=== PATIENT | male | born 1980 | race Asian ===

== ENCOUNTER 2023-03-19 07:17 | Inpatient (IN) | payer BC ==
[~2023-03-19] VITALS: Ht 170.2 cm; Wt 46.3 kg
[2023-03-19] MEDS: methylPREDNISolone SOD SUCC 125 MG/2ML VIAL IV ONE ×2 (07:30→07:46)
[2023-03-19] MEDS ORDERED: ALBUTEROL FS 2.5 MG/3 ML VIAL.NEB CONTNEB ONE (07:30)
[2023-03-19] MEDS ORDERED: CEFEPIME 1 GM in IV D5W 50 ML IV ONE (07:30)
[2023-03-19] MEDS ORDERED: VANCOMYCIN 1 GM in IV D5W 250 ML IV ONE ×2 (07:30→08:30)
[2023-03-19] MEDS ORDERED: IPRATROPIUM NEB FS 0.5 MG/2.5 ML AMPUL.NEB NEB ONE (07:30)
[2023-03-19] MEDS ORDERED: IV NS 0.9% 1,000 ML BAG IV ONE (07:30)
[2023-03-19] MEDS ORDERED: methylPREDNISolone SOD SUCC 125 MG/2ML VIAL ONE ×2 (07:32→08:20)
[2023-03-19] MEDS ORDERED: IPRATROPIUM NEB FS 0.5 MG/2.5 ML AMPUL.NEB ONE (07:56)
[2023-03-19] MEDS ORDERED: ALBUTEROL FS 2.5 MG/3 ML VIAL.NEB ONE (07:56)
[2023-03-19] MEDS ORDERED: ACETAMINOPHEN 650 MG/SUPP.RECT RC ONE ×2 (07:58→08:00)
[2023-03-19 08:01] LABS: BASOPHILS % (AUTO) 0.1 % (0.0-2.0); HEMATOCRIT 31 % (39-51); LYMPHOCYTES # (AUTO) 1.4 K/uL (0.8-4.8); MEAN CORPUSCULAR HEMOGLOBIN 30 PG (26.0-33.0); MEAN CORPUSCULAR HGB CONC 33 g/dl (31.0-36.0); MEAN CORPUSCULAR VOLUME 92 fL (80-96); MONOCYTES # (AUTO) 1.2 K/uL (0.1-1.30); MONOCYTES % (AUTO) 6.7 % (2.0-12.0); NEUTROPHILS # (AUTO) 15.3 K/uL (1.8-8.9); NEUTROPHILS % (AUTO) 85.2 % (43.0-81.0); PLATELET COUNT (AUTO) 208 K/uL (150-450); RED BLOOD CELL COUNT(AUTO) 3.35 MIL/uL (4.5-6.0); RED CELL DISTRIBUTION WIDTH 16.3 % (11.5-15.0); WHITE BLOOD COUNT (AUTO) 17.9 K/uL (4.3-11.0)
[2023-03-19 08:15] LABS: CALCIUM, SERUM 8.8 mg/dL (8.5-10.1); CARBON DIOXIDE 33 mmol/L (21-32); CHLORIDE 98 mmol/L (98-107); CREATININE 0.6 mg/dL (0.6-1.3); GLUCOSE 148 mg/dL (74-106); POTASSIUM 4.6 mmol/L (3.5-5.1); SODIUM SERUM 135 mmol/L (136-145); UREA NITROGEN, BLOOD 43 mg/dL (7-18)
[2023-03-19 08:19] LABS: APPEARANCE,URINE TURBID (CLEAR); BILIRUBIN,URINE NEGATIVE (NEGATIVE); BLOOD, URINE 3+ Ery/uL (NEGATIVE); COLOR,URINE DARK YELLOW (YELLOW); KETONES,URINE NEGATIVE (NEGATIVE); LEUKOCYTE ESTERASE ,URINE 3+ (NEGATIVE); NITRITE, URINE NEGATIVE (NEGATIVE); PROTEIN,URINE TRACE mg/dl (NEGATIVE); UGLUCOSE NEGATIVE (NEGATIVE); UROBILINOGEN,URINE 0.2 EU/dL (0.2)
[2023-03-19 08:20] LABS: ADD URINE CULTURE YES; BACTERIA,URINE Moderate /HPF (None Seen); SQUAMOUS EPITHELIAL CELL,UR Rare /HPF (None Seen); WBC,URINE 21-50 /HPF (0-3)
[2023-03-19 08:21] LABS: ALANINE AMINOTRANSFERASE 57 U/L (12-78); ALBUMIN 2.1 g/dL (3.4-5.0); ALKALINE PHOSPHATASE 98 U/L (46-116); ASPARTATE AMINOTRANSFERASE 45 U/L (15-37); BILIRUBIN,DIRECT 0.1 mg/dL (0.0-0.2); BILIRUBIN,TOTAL 0.2 mg/dL (0.2-1.0); TOTAL PROTEIN, SERUM 6.7 g/dL (6.4-8.2)
[2023-03-19 08:23] LABS: LACTIC ACID 1.1 mmol/L (0.4-2.0)
[2023-03-19 08:24] LABS: ABG BASE EXCESS 8.2 mmol/L; ABG OXYGEN SATURATION 96.3 % (92.0-98.5); ABG PCO2 44.6 mmHg (35.0-45.0); ABG PH 7.481 (7.350-7.450); ABG TOTAL HEMOGLOBIN 10.1 G/dL (13.5-18.0); COHb 0.3 % (0.5-1.5); MetHb 0.4 % (0.0-1.5); O2Hb 95.6 % (94.0-97.0); PEEP,BG 5 cm H2O; SITE, ABG Right Radial; VT, ABG 400 mL
[2023-03-19 08:26] LABS: INR 1.19 (0.91-1.10); PARTIAL THROMBOPLASTIN TIME 31.3 SEC (24.3-34.3); PROTHROMBIN TIME 12.5 SECS (9.2-11.1)
[2023-03-19] MEDS ORDERED: NOREPINEPHRINE 8 MG in IV NS 0.9% 250 ML IV PRN (08:30)
[2023-03-19] MEDS ORDERED: DANT25CA GT (08:33)
[2023-03-19] MEDS ORDERED: CLON0.1T GT (08:33)
[2023-03-19] MEDS ORDERED: LEVE1000 GT (08:33)
[2023-03-19] MEDS ORDERED: LEVO50TA8 GT (08:33)
[2023-03-19] MEDS ORDERED: ACET-868 GT (08:33)
[2023-03-19] MEDS ORDERED: CHOL100043 GT (08:33)
[2023-03-19] MEDS ORDERED: MODAFINIL GT (08:33)
[2023-03-19] MEDS ORDERED: LORA2VIA11 IM (08:33)
[2023-03-19] MEDS ORDERED: METO-295 GT (08:33)
[2023-03-19] MEDS ORDERED: HONE44PA TP (08:33)
[2023-03-19] MEDS ORDERED: VALP250S4 GT (08:33)
[2023-03-19] MEDS ORDERED: IPRA3AMP23 IH (08:33)
[2023-03-19] MEDS ORDERED: [UNRECOGNIZED DRUG - CODE] IH (08:33)
[2023-03-19] MEDS ORDERED: FERR300L GT (08:33)
[2023-03-19] MEDS ORDERED: LACT1CAP80 GT (08:33)
[2023-03-19] MEDS ORDERED: DOXY100C2 GT (08:33)
[2023-03-19] MEDS ORDERED: POLY17PO4 GT (08:33)
[2023-03-19] MEDS ORDERED: AMAN100T GT (08:33)
[2023-03-19] MEDS ORDERED: PANT40SU2 GT (08:33)
[2023-03-19] MEDS ORDERED: DOCU250C14 GT (08:33)
[2023-03-19] MEDS ORDERED: LACT-209 GT (08:33)
[2023-03-19 08:44] LABS: THYROID STIMULATING HORMONE 0.965 uIU/mL (0.358-3.74)
[2023-03-19 09:17] LABS: ALBUMIN 1.8 g/dL (3.4-5.0); BILIRUBIN,DIRECT 0.1 mg/dL (0.0-0.2); BILIRUBIN,TOTAL 0.3 mg/dL (0.2-1.0); CALCIUM, SERUM 7.9 mg/dL (8.5-10.1); CREATININE 0.6 mg/dL (0.6-1.3); POTASSIUM 4.1 mmol/L (3.5-5.1); TOTAL PROTEIN, SERUM 5.8 g/dL (6.4-8.2)
[2023-03-19] MEDS ORDERED: NOREPINEPHRINE 8 MG in IV NS 0.9% 242 ML IV PRN (10:30)
[2023-03-19] MEDS ORDERED: PIPERACILLIN /TAZOBACTAM 3.375 G in IV D5W 100 ML IV SCH (11:00)
[2023-03-19] MEDS ORDERED: PIPERACILLIN /TAZOBACTAM 4.5 G in IV D5W 100 ML IV SCH (12:00)
[2023-03-19] MEDS ORDERED: PANTOPRAZOLE 40 MG VIAL ONE (12:51)
[2023-03-19] MEDS: PANTOPRAZOLE 40 MG VIAL IV SCH (12:54)
[2023-03-19] MEDS ORDERED: ENOXAPARIN SODIUM 40 MG/0.4 ML DISP.SYRIN SQ SCH (13:00)
[2023-03-19] MEDS ORDERED: ENOXAPARIN SODIUM 40 MG/0.4 ML DISP.SYRIN SQ ONE (13:47)
[2023-03-19] MEDS: VANCOMYCIN 1 GM in IV D5W 250ml IV SCH (17:45)
[2023-03-19] MEDS ORDERED: VANCOMYCIN 1 GM /D5W 250 ML PB IV ONE (17:48)
[2023-03-19 22:30] VITALS: BP 137/87; O2SAT 100
[2023-03-19 22:45] VITALS: BP 144/92; O2SAT 90
[2023-03-19 23:00] VITALS: BP 128/86; O2SAT 94
[2023-03-19 23:15] VITALS: BP 134/89; O2SAT 92
[2023-03-19 23:30] VITALS: BP 135/84; O2SAT 91
[2023-03-19] MEDS ORDERED: PIPERACI/TAZO 3.375GM/D5W 50ML PB IV ONE (23:36)
[2023-03-19] MEDS: PIPERACILLIN /TAZOBACTAM 3.375 G in IV D5W 100 ML IV SCH (23:38)
[2023-03-19] MEDS: ENOXAPARIN SODIUM 40 MG/0.4 ML DISP.SYRIN SQ SCH (23:39)
[2023-03-19] MEDS: IV NS 0.9% 1,000 ML IV PRN (23:39)
[2023-03-19 23:45] VITALS: BP 138/92; O2SAT 93
[2023-03-20] VITALS (43 sets, daily range): BP systolic 81–147; BP diastolic 53–135; TEMP 97.9–99; O2SAT 89–100
[2023-03-20] MEDS ORDERED: VANCOMYCIN 1 GM /D5W 250 ML PB IV ONE (00:09)
[2023-03-20] MEDS: VANCOMYCIN 1 GM in IV D5W 250ml IV SCH (00:17)
[2023-03-20 04:09] LABS: HEMATOCRIT 25 % (39-51); HEMOGLOBIN 8.1 g/dL (13.5-17.5); LYMPHOCYTES % (AUTO) 5.5 % (20.0-44.0); MEAN CORPUSCULAR HEMOGLOBIN 29 PG (26.0-33.0); MEAN CORPUSCULAR HGB CONC 32 g/dl (31.0-36.0); MEAN CORPUSCULAR VOLUME 90 fL (80-96); MONOCYTES % (AUTO) 4.5 % (2.0-12.0); PLATELET COUNT (AUTO) 154 K/uL (150-450); RED BLOOD CELL COUNT(AUTO) 2.79 MIL/uL (4.5-6.0); WHITE BLOOD COUNT (AUTO) 14.5 K/uL (4.3-11.0)
[2023-03-20 04:10] LABS: LYMPHOCYTES # (AUTO) 0.8 K/uL (0.8-4.8); MONOCYTES # (AUTO) 0.7 K/uL (0.1-1.30)
[2023-03-20 04:36] LABS: ALBUMIN 1.8 g/dL (3.4-5.0); BILIRUBIN,TOTAL 0.3 mg/dL (0.2-1.0); CALCIUM, SERUM 8.1 mg/dL (8.5-10.1); CREATININE 0.5 mg/dL (0.6-1.3); POTASSIUM 3.7 mmol/L (3.5-5.1); TOTAL PROTEIN, SERUM 5.7 g/dL (6.4-8.2)
[2023-03-20] MEDS: PIPERACILLIN /TAZOBACTAM 3.375 G in IV D5W 100 ML IV SCH ×3 (08:09→23:48)
[2023-03-20] MEDS: PANTOPRAZOLE 40 MG VIAL IV SCH (09:57)
[2023-03-20] MEDS: DAKINS QUARTER STRENGTH (0.125%) 480 ML BOTTLE TOP SCH (09:57)
[2023-03-20] MEDS: THERAHONEY GEL 1.5 OZ TUBE TP SCH (09:58)
[2023-03-20] MEDS: IV NS 0.9% 1,000 ML IV PRN (12:06)
[2023-03-20] MEDS ORDERED: LIDOCAINE 1%-EPI 1:100,000 20 ML VIAL TP ONE (16:30)
[2023-03-20] MEDS: VANCOMYCIN 0.75 GM in IV D5W 250 ML IV SCH (20:31)
[2023-03-20] MEDS: ENOXAPARIN SODIUM 40 MG/0.4 ML DISP.SYRIN SQ SCH (20:32)
[2023-03-21] VITALS (80 sets, daily range): BP systolic 62–158; BP diastolic 48–106; TEMP 97.6–99.5; O2SAT 90–100
[2023-03-21] MEDS: IV NS 0.9% 1,000 ML IV PRN ×2 (00:49→19:16)
[2023-03-21] MEDS: VANCOMYCIN 0.75 GM in IV D5W 250 ML IV SCH ×3 (04:21→20:00)
[2023-03-21 05:36] LABS: CALCIUM, SERUM 8.1 mg/dL (8.5-10.1); CREATININE 0.3 mg/dL (0.6-1.3); POTASSIUM 3.3 mmol/L (3.5-5.1)
[2023-03-21] MEDS: PIPERACILLIN /TAZOBACTAM 3.375 G in IV D5W 100 ML IV SCH ×3 (08:42→23:41)
[2023-03-21] MEDS ORDERED: POTASSIUM CHLORIDE 10 MEQ/50 ML PREMIXED IVPB FOR PERIPHERAL LINE IV ONE (09:00)
[2023-03-21] MEDS: DAKINS QUARTER STRENGTH (0.125%) 480 ML BOTTLE TOP SCH (09:47)
[2023-03-21] MEDS: THERAHONEY GEL 1.5 OZ TUBE TP SCH (09:47)
[2023-03-21] MEDS: PANTOPRAZOLE 40 MG VIAL IV SCH (09:53)
[2023-03-21] MEDS: POTASSIUM CL. PREMIX PERIPHER. 50 ML IV SCH ×4 (09:54→13:15)
[2023-03-21 10:29] LABS: HEMOGLOBIN 7.3 g/dL (13.5-17.5)
[2023-03-21 10:53] LABS: BASOPHILS % (AUTO) 0.1 % (0.0-2.0); EOSINOPHILS % (AUTO) 0.1 % (0.0-6.0); LYMPHOCYTES # (AUTO) 0.7 K/uL (0.8-4.8); MONOCYTES # (AUTO) 0.3 K/uL (0.1-1.30)
[2023-03-21 10:56] LABS: HEMATOCRIT 22 % (39-51); LYMPHOCYTES % (AUTO) 9.6 % (20.0-44.0); MEAN CORPUSCULAR HEMOGLOBIN 29 PG (26.0-33.0); MEAN CORPUSCULAR HGB CONC 33 g/dl (31.0-36.0); MEAN CORPUSCULAR VOLUME 90 fL (80-96); MONOCYTES % (AUTO) 4.1 % (2.0-12.0); NEUTROPHILS % (AUTO) 86.1 % (43.0-81.0); PLATELET COUNT (AUTO) 119 K/uL (150-450); RED BLOOD CELL COUNT(AUTO) 2.49 MIL/uL (4.5-6.0); RED CELL DISTRIBUTION WIDTH 16.1 % (11.5-15.0)
[2023-03-21] MEDS: JEVITY 1.2 CAL 1,000 ML BOTTLE GT PRN (13:40)
[2023-03-21] MEDS: ENOXAPARIN SODIUM 40 MG/0.4 ML DISP.SYRIN SQ SCH (21:00)
[2023-03-21 22:42] LABS: HIV-1 p24 ANTIGEN NON REACTIVE (NONREACTIVE); HIV-1/2 ANTIBODY NON REACTIVE (NONREACTIVE)
[2023-03-21] MEDS: ACETAMINOPHEN 650 MG/20.3 ML UDC NG PRN (22:56)
[2023-03-22] VITALS (98 sets, daily range): BP systolic 50–186; BP diastolic 32–162; TEMP 97–100.2; O2SAT 93–100
[2023-03-22] MEDS: VANCOMYCIN 0.75 GM in IV D5W 250 ML IV SCH ×3 (04:09→21:16)
[2023-03-22 05:11] LABS: CALCIUM, SERUM 7.7 mg/dL (8.5-10.1); CREATININE 0.3 mg/dL (0.6-1.3); POTASSIUM 3.6 mmol/L (3.5-5.1)
[2023-03-22] MEDS: IV NS 0.9% 1,000 ML IV PRN ×3 (05:18→23:49)
[2023-03-22] MEDS: DAKINS QUARTER STRENGTH (0.125%) 480 ML BOTTLE TOP SCH (08:14)
[2023-03-22] MEDS: PANTOPRAZOLE 40 MG VIAL IV SCH (08:14)
[2023-03-22] MEDS: PIPERACILLIN /TAZOBACTAM 3.375 G in IV D5W 100 ML IV SCH ×4 (08:14→23:50)
[2023-03-22] MEDS: THERAHONEY GEL 1.5 OZ TUBE TP SCH (08:15)
[2023-03-22] MEDS: JEVITY 1.2 CAL 1,000 ML BOTTLE GT PRN (12:41)
[2023-03-22] MEDS: ACETAMINOPHEN 650 MG/20.3 ML UDC NG PRN (15:22)
[2023-03-22] MEDS: ARGININE/GLUTAMINE/CALCIUM BMB 1 EACH POWD.PACK GT SCH (17:50)
[2023-03-22] MEDS: ENOXAPARIN SODIUM 40 MG/0.4 ML DISP.SYRIN SQ SCH (21:00)
[2023-03-23] VITALS (24 sets, daily range): BP systolic 96–163; BP diastolic 59–79; TEMP 98.3–101; O2SAT 95–100
[2023-03-23 05:17] LABS: ABG OXYGEN SATURATION 98.3 % (92.0-98.5); ABG PCO2 37.3 mmHg (35.0-45.0); ABG PH 7.459 (7.350-7.450); ABG TOTAL HEMOGLOBIN 8.9 G/dL (13.5-18.0); AaDO2 102.3 mmHg; COHb 0.2 % (0.5-1.5); MetHb 0.1 % (0.0-1.5); PEEP,BG 0 cm H2O; SITE, ABG Right Radial; VENT MODE, BG AC18 400 40% +0; VT, ABG 400 mL
[2023-03-23 05:38] LABS: BASOPHILS % (AUTO) 0.2 % (0.0-2.0); EOSINOPHILS # (AUTO) 0.2 K/uL (0.0-0.7); EOSINOPHILS % (AUTO) 2.2 % (0.0-6.0); HEMATOCRIT 23 % (39-51); HEMOGLOBIN 7.5 g/dL (13.5-17.5); LYMPHOCYTES # (AUTO) 0.6 K/uL (0.8-4.8); LYMPHOCYTES % (AUTO) 8.6 % (20.0-44.0); MEAN CORPUSCULAR HEMOGLOBIN 30 PG (26.0-33.0); MEAN CORPUSCULAR HGB CONC 32 g/dl (31.0-36.0); MEAN CORPUSCULAR VOLUME 92 fL (80-96); MONOCYTES # (AUTO) 0.3 K/uL (0.1-1.30); MONOCYTES % (AUTO) 4.1 % (2.0-12.0); NEUTROPHILS # (AUTO) 6.1 K/uL (1.8-8.9); NEUTROPHILS % (AUTO) 84.9 % (43.0-81.0); PLATELET COUNT (AUTO) 131 K/uL (150-450); RED BLOOD CELL COUNT(AUTO) 2.54 MIL/uL (4.5-6.0); RED CELL DISTRIBUTION WIDTH 16.1 % (11.5-15.0); WHITE BLOOD COUNT (AUTO) 7.2 K/uL (4.3-11.0)
[2023-03-23 06:08] LABS: CALCIUM, SERUM 7.9 mg/dL (8.5-10.1); CREATININE 0.2 mg/dL (0.6-1.3); POTASSIUM 3.9 mmol/L (3.5-5.1)
[2023-03-23 06:14] LABS: BAND % (MANUAL) 1 % (0.0-5.0); EOSINOPHILS % (MANUAL) 1 % (0-4); LYMPHOCYTES % (MANUAL) 8 % (16-48); MONOCYTES % (MANUAL) 7 % (0-11.0); NEUTROPHILS % (MANUAL) 83 (42-76); PLATELET ESTIMATE DECREASED
[2023-03-23] MEDS: PIPERACILLIN /TAZOBACTAM 3.375 G in IV D5W 100 ML IV SCH (07:48)
[2023-03-23] MEDS: ARGININE/GLUTAMINE/CALCIUM BMB 1 EACH POWD.PACK GT SCH ×2 (08:17→16:12)
[2023-03-23] MEDS: ZINC SULFATE 220 MG CAPSULE GT SCH (08:18)
[2023-03-23] MEDS: PANTOPRAZOLE 40 MG/PACK PACK NG SCH (08:18)
[2023-03-23] MEDS: DAKINS QUARTER STRENGTH (0.125%) 480 ML BOTTLE TOP SCH (08:18)
[2023-03-23] MEDS: MULTIVIT W/MINERALS 1 TAB TABLET GT SCH (08:19)
[2023-03-23] MEDS: THERAHONEY GEL 1.5 OZ TUBE TP SCH (08:20)
[2023-03-23] MEDS: IV NS 0.9% 1,000 ML IV PRN (09:18)
[2023-03-23] MEDS: VANCOMYCIN 0.75 GM in IV D5W 250 ML IV SCH ×2 (09:23→21:17)
[2023-03-23] MEDS: MEROPENEM 1 G in IV NS 0.9% 100 ML IV SCH ×2 (13:42→21:55)
[2023-03-23] MEDS: ACETAMINOPHEN 650 MG/20.3 ML UDC NG PRN (16:12)
[2023-03-23] MEDS: ENOXAPARIN SODIUM 40 MG/0.4 ML DISP.SYRIN SQ SCH (21:00)
[2023-03-24 00:33] VITALS: BP 102/87; TEMP 99.3; O2SAT 99
[2023-03-24] MEDS: IV NS 0.9% 1,000 ML IV PRN (00:57)
[2023-03-24] MEDS: JEVITY 1.2 CAL 1,000 ML BOTTLE GT PRN (03:16)
[2023-03-24] MEDS: MEROPENEM 1 G in IV NS 0.9% 100 ML IV SCH ×3 (04:00→21:20)
[2023-03-24 04:49] VITALS: BP 107/63; TEMP 99.1; O2SAT 99
[2023-03-24 08:00] VITALS: BP 139/100; TEMP 100; O2SAT 98
[2023-03-24 08:26] LABS: CALCIUM, SERUM 8.1 mg/dL (8.5-10.1); CREATININE 0.2 mg/dL (0.6-1.3); POTASSIUM 4.4 mmol/L (3.5-5.1)
[2023-03-24] MEDS: ACETAMINOPHEN 650 MG/20.3 ML UDC NG PRN (09:24)
[2023-03-24] MEDS: ARGININE/GLUTAMINE/CALCIUM BMB 1 EACH POWD.PACK GT SCH ×2 (09:24→17:07)
[2023-03-24] MEDS: MULTIVIT W/MINERALS 1 TAB TABLET GT SCH (09:24)
[2023-03-24] MEDS: DAKINS QUARTER STRENGTH (0.125%) 480 ML BOTTLE TOP SCH (09:25)
[2023-03-24] MEDS: THERAHONEY GEL 1.5 OZ TUBE TP SCH (09:25)
[2023-03-24] MEDS: ZINC SULFATE 220 MG CAPSULE GT SCH (09:25)
[2023-03-24] MEDS: PANTOPRAZOLE 40 MG/PACK PACK NG SCH (09:25)
[2023-03-24] MEDS: VANCOMYCIN 0.75 GM in IV D5W 250 ML IV SCH ×2 (09:28→21:21)
[2023-03-24 12:00] VITALS: BP 124/99; TEMP 99.5; O2SAT 98
[2023-03-24 16:00] VITALS: BP 93/59; TEMP 98.4; O2SAT 95
[2023-03-24 20:00] VITALS: BP 97/59; TEMP 98.4; O2SAT 95
[2023-03-24] MEDS: ENOXAPARIN SODIUM 40 MG/0.4 ML DISP.SYRIN SQ SCH (21:24)
[2023-03-25 02:23] VITALS: BP 97/59; TEMP 98.4; O2SAT 95
[2023-03-25] MEDS: IV NS 0.9% 1,000 ML IV PRN (02:38)
[2023-03-25] MEDS: MEROPENEM 1 G in IV NS 0.9% 100 ML IV SCH ×3 (05:00→20:16)
[2023-03-25 06:00] VITALS: BP 123/66; TEMP 99.9; O2SAT 95
[2023-03-25 06:11] LABS: CALCIUM, SERUM 8.2 mg/dL (8.5-10.1); CREATININE 0.5 mg/dL (0.6-1.3); POTASSIUM 4.3 mmol/L (3.5-5.1)
[2023-03-25 08:00] VITALS: BP 135/100; TEMP 97.6; O2SAT 95
[2023-03-25] MEDS: PANTOPRAZOLE 40 MG/PACK PACK NG SCH (08:58)
[2023-03-25] MEDS: VANCOMYCIN 0.75 GM in IV D5W 250 ML IV SCH ×2 (08:58→20:57)
[2023-03-25] MEDS: ZINC SULFATE 220 MG CAPSULE GT SCH (08:58)
[2023-03-25] MEDS: MULTIVIT W/MINERALS 1 TAB TABLET GT SCH (08:58)
[2023-03-25] MEDS: ARGININE/GLUTAMINE/CALCIUM BMB 1 EACH POWD.PACK GT SCH ×2 (09:00→16:37)
[2023-03-25] MEDS: DAKINS QUARTER STRENGTH (0.125%) 480 ML BOTTLE TOP SCH (09:18)
[2023-03-25] MEDS: THERAHONEY GEL 1.5 OZ TUBE TP SCH (09:18)
[2023-03-25] MEDS: ACETAMINOPHEN 650 MG/20.3 ML UDC GT PRN (10:59)
[2023-03-25 12:00] VITALS: BP 97/58; TEMP 97.9; O2SAT 95
[2023-03-25 16:00] VITALS: BP 98/60; TEMP 98; O2SAT 95
[2023-03-25 20:00] VITALS: BP 109/74; TEMP 98.8; O2SAT 95
[2023-03-25] MEDS: JEVITY 1.2 CAL 1,000 ML BOTTLE GT PRN (20:56)
[2023-03-26] VITALS (11 sets, daily range): BP systolic 96–110; BP diastolic 56–67; TEMP 97.7–99.7; O2SAT 93–96
[2023-03-26] MEDS: ENOXAPARIN SODIUM 40 MG/0.4 ML DISP.SYRIN SQ SCH ×2 (00:49→21:00)
[2023-03-26] MEDS: MEROPENEM 1 G in IV NS 0.9% 100 ML IV SCH ×3 (04:59→20:21)
[2023-03-26 06:04] LABS: CALCIUM, SERUM 8.6 mg/dL (8.5-10.1); CREATININE 0.4 mg/dL (0.6-1.3); POTASSIUM 4.2 mmol/L (3.5-5.1)
[2023-03-26] MEDS: PANTOPRAZOLE 40 MG/PACK PACK GT SCH (08:10)
[2023-03-26] MEDS: ARGININE/GLUTAMINE/CALCIUM BMB 1 EACH POWD.PACK GT SCH ×2 (08:11→16:14)
[2023-03-26] MEDS: ZINC SULFATE 220 MG CAPSULE GT SCH (08:11)
[2023-03-26] MEDS: MULTIVIT W/MINERALS 1 TAB TABLET GT SCH (08:12)
[2023-03-26] MEDS: VANCOMYCIN 0.75 GM in IV D5W 250 ML IV SCH ×2 (08:12→21:06)
[2023-03-26] MEDS: THERAHONEY GEL 1.5 OZ TUBE TP SCH (08:13)
[2023-03-26 08:52] LABS: BASOPHILS % (AUTO) 0.2 % (0.0-2.0); EOSINOPHILS % (AUTO) 0.6 % (0.0-6.0); HEMATOCRIT 21 % (39-51); LYMPHOCYTES # (AUTO) 0.5 K/uL (0.8-4.8); LYMPHOCYTES % (AUTO) 20.5 % (20.0-44.0); MEAN CORPUSCULAR HEMOGLOBIN 29 PG (26.0-33.0); MEAN CORPUSCULAR HGB CONC 32 g/dl (31.0-36.0); MEAN CORPUSCULAR VOLUME 92 fL (80-96); MONOCYTES # (AUTO) 0.7 K/uL (0.1-1.30); MONOCYTES % (AUTO) 31.3 % (2.0-12.0); NEUTROPHILS # (AUTO) 1.1 K/uL (1.8-8.9); NEUTROPHILS % (AUTO) 47.4 % (43.0-81.0); PLATELET COUNT (AUTO) 194 K/uL (150-450); RED BLOOD CELL COUNT(AUTO) 2.25 MIL/uL (4.5-6.0); RED CELL DISTRIBUTION WIDTH 15.7 % (11.5-15.0); WHITE BLOOD COUNT (AUTO) 2.3 K/uL (4.3-11.0)
[2023-03-26] MEDS: DAKINS QUARTER STRENGTH (0.125%) 480 ML BOTTLE TOP SCH (09:00)
[2023-03-26 09:06] LABS: HEMOGLOBIN 6.6 g/dL (13.5-17.5)
[2023-03-26 12:51] LABS: ANISOCYTOSIS 1+; BAND % (MANUAL) 3 % (0.0-5.0); LYMPHOCYTES % (MANUAL) 19 % (16-48); MONOCYTES % (MANUAL) 18 % (0-11.0); NEUTROPHILS % (MANUAL) 60 (42-76); PLATELET ESTIMATE ADEQUATE
[2023-03-26] MEDS: JEVITY 1.2 CAL 1,000 ML BOTTLE GT PRN (14:12)
[2023-03-26] MEDS: ACETAMINOPHEN 650 MG/20.3 ML UDC GT PRN (16:04)
[2023-03-27] VITALS: BP 115/63; TEMP 98.1; O2SAT 95
[2023-03-27] MEDS ORDERED: DANTROLENE SODIUM 25 MG CAPSULE GT SCH (00:30)
[2023-03-27] MEDS ORDERED: LORAZEPAM INJ 2 MG/ML VIAL IV PRN (00:30)
[2023-03-27] MEDS ORDERED: PHARMACY TO CHANGE PO MEDS TO GT/NG XX PRN (01:00)
[2023-03-27] MEDS: LEVETIRACETAM SOL (5 ML) 100 MG/ML UDC GT SCH ×3 (01:37→21:55)
[2023-03-27] MEDS: VALPROIC ACID 250 MG/5 ML UDC GT SCH ×3 (01:38→21:54)
[2023-03-27] MEDS: LEVOTHYROXINE SODIUM 50 MCG TABLET GT SCH ×2 (01:38→21:55)
[2023-03-27] MEDS: FERROUS SULFATE UDC 300 MG/5 ML UDC GT SCH ×3 (01:38→21:55)
[2023-03-27] MEDS: AMANTADINE HCL 100 MG CAPSULE GT SCH ×3 (01:38→21:55)
[2023-03-27] MEDS ORDERED: DANTROLENE SODIUM 25 MG CAPSULE ONE (01:51)
[2023-03-27 04:00] VITALS: BP 110/60; TEMP 98; O2SAT 93
[2023-03-27] MEDS: MEROPENEM 1 G in IV NS 0.9% 100 ML IV SCH ×3 (04:55→21:06)
[2023-03-27 07:35] LABS: BASOPHILS % (AUTO) 0.1 % (0.0-2.0); EOSINOPHILS % (AUTO) 0.8 % (0.0-6.0); HEMATOCRIT 24 % (39-51); HEMOGLOBIN 7.7 g/dL (13.5-17.5); LYMPHOCYTES # (AUTO) 0.7 K/uL (0.8-4.8); LYMPHOCYTES % (AUTO) 20.3 % (20.0-44.0); MEAN CORPUSCULAR HEMOGLOBIN 30 PG (26.0-33.0); MEAN CORPUSCULAR HGB CONC 33 g/dl (31.0-36.0); MEAN CORPUSCULAR VOLUME 92 fL (80-96); MONOCYTES # (AUTO) 0.7 K/uL (0.1-1.30); MONOCYTES % (AUTO) 18.9 % (2.0-12.0); NEUTROPHILS # (AUTO) 2.2 K/uL (1.8-8.9); NEUTROPHILS % (AUTO) 59.9 % (43.0-81.0); PLATELET COUNT (AUTO) 225 K/uL (150-450); RED BLOOD CELL COUNT(AUTO) 2.58 MIL/uL (4.5-6.0); RED CELL DISTRIBUTION WIDTH 15.4 % (11.5-15.0); WHITE BLOOD COUNT (AUTO) 3.6 K/uL (4.3-11.0)
[2023-03-27 07:48] LABS: CALCIUM, SERUM 8.8 mg/dL (8.5-10.1); CREATININE 0.3 mg/dL (0.6-1.3); POTASSIUM 4.2 mmol/L (3.5-5.1)
[2023-03-27 08:00] VITALS: BP 106/55; TEMP 98.3; O2SAT 96
[2023-03-27] MEDS: ZINC SULFATE 220 MG CAPSULE GT SCH (08:22)
[2023-03-27] MEDS: PANTOPRAZOLE 40 MG/PACK PACK GT SCH (08:22)
[2023-03-27] MEDS: CHOLECALCIFEROL (VITAMIN D 3) 400 UNIT TABLET GT SCH (08:23)
[2023-03-27] MEDS: MULTIVIT W/MINERALS 1 TAB TABLET GT SCH (08:23)
[2023-03-27] MEDS: DANTROLENE SODIUM 25 MG CAPSULE GT SCH ×3 (08:25→21:54)
[2023-03-27] MEDS: ARGININE/GLUTAMINE/CALCIUM BMB 1 EACH POWD.PACK GT SCH ×2 (08:26→16:28)
[2023-03-27] MEDS: DAKINS QUARTER STRENGTH (0.125%) 480 ML BOTTLE TOP SCH (08:28)
[2023-03-27] MEDS: THERAHONEY GEL 1.5 OZ TUBE TP SCH (08:28)
[2023-03-27] MEDS: VANCOMYCIN 0.75 GM in IV D5W 250 ML IV SCH ×2 (08:28→21:54)
[2023-03-27] MEDS ORDERED: CHOLECALCIFEROL (VITAMIN D 3) 400 UNIT TABLET PO SCH (09:00)
[2023-03-27] MEDS ORDERED: PANTOPRAZOLE 40 MG/PACK PACK GT SCH (09:00)
[2023-03-27 11:05] LABS: EOSINOPHILS % (MANUAL) 2 % (0-4); LYMPHOCYTES % (MANUAL) 20 % (16-48); MONOCYTES % (MANUAL) 16 % (0-11.0); NEUTROPHILS % (MANUAL) 62 (42-76)
[2023-03-27 12:00] VITALS: BP 116/56; TEMP 98.1; O2SAT 96
[2023-03-27 13:45] LABS: PLATELET ESTIMATE ADEQUATE
[2023-03-27 16:00] VITALS: BP 119/70; TEMP 98.3; O2SAT 100
[2023-03-27] MEDS: JEVITY 1.2 CAL 1,000 ML BOTTLE GT PRN (18:23)
[2023-03-27 20:00] VITALS: BP 101/59; TEMP 97.9; O2SAT 94
[2023-03-27] MEDS: ENOXAPARIN SODIUM 40 MG/0.4 ML DISP.SYRIN SQ SCH (21:00)
[2023-03-28] VITALS: BP 95/52; TEMP 97.9; O2SAT 95
[2023-03-28 04:00] VITALS: BP 103/66; TEMP 97.5; O2SAT 98
[2023-03-28] MEDS: MEROPENEM 1 G in IV NS 0.9% 100 ML IV SCH ×3 (05:20→20:33)
[2023-03-28 07:02] LABS: BASOPHILS % (AUTO) 0.1 % (0.0-2.0); EOSINOPHILS % (AUTO) 0.2 % (0.0-6.0); HEMATOCRIT 25 % (39-51); LYMPHOCYTES # (AUTO) 0.8 K/uL (0.8-4.8); LYMPHOCYTES % (AUTO) 15.3 % (20.0-44.0); MEAN CORPUSCULAR HEMOGLOBIN 30 PG (26.0-33.0); MEAN CORPUSCULAR HGB CONC 32 g/dl (31.0-36.0); MEAN CORPUSCULAR VOLUME 94 fL (80-96); MONOCYTES # (AUTO) 0.6 K/uL (0.1-1.30); MONOCYTES % (AUTO) 11.2 % (2.0-12.0); NEUTROPHILS # (AUTO) 3.6 K/uL (1.8-8.9); NEUTROPHILS % (AUTO) 73.2 % (43.0-81.0); PLATELET COUNT (AUTO) 247 K/uL (150-450); RED BLOOD CELL COUNT(AUTO) 2.67 MIL/uL (4.5-6.0); RED CELL DISTRIBUTION WIDTH 15.6 % (11.5-15.0); WHITE BLOOD COUNT (AUTO) 4.9 K/uL (4.3-11.0)
[2023-03-28 07:24] LABS: CREATININE 0.4 mg/dL (0.6-1.3); POTASSIUM 4.6 mmol/L (3.5-5.1)
[2023-03-28 08:00] VITALS: BP 105/56; TEMP 98.6; O2SAT 94
[2023-03-28] MEDS: DANTROLENE SODIUM 25 MG CAPSULE GT SCH ×3 (08:45→20:33)
[2023-03-28] MEDS: DAKINS QUARTER STRENGTH (0.125%) 480 ML BOTTLE TOP SCH (09:00)
[2023-03-28] MEDS: THERAHONEY GEL 1.5 OZ TUBE TP SCH (09:00)
[2023-03-28] MEDS: ARGININE/GLUTAMINE/CALCIUM BMB 1 EACH POWD.PACK GT SCH ×2 (09:07→17:00)
[2023-03-28] MEDS: ZINC SULFATE 220 MG CAPSULE GT SCH (09:10)
[2023-03-28] MEDS: CHOLECALCIFEROL (VITAMIN D 3) 400 UNIT TABLET GT SCH (09:11)
[2023-03-28] MEDS: MULTIVIT W/MINERALS 1 TAB TABLET GT SCH (09:12)
[2023-03-28] MEDS: AMANTADINE HCL 100 MG CAPSULE GT SCH ×2 (09:13→20:33)
[2023-03-28] MEDS: PANTOPRAZOLE 40 MG/PACK PACK GT SCH (09:14)
[2023-03-28] MEDS: LEVETIRACETAM SOL (5 ML) 100 MG/ML UDC GT SCH ×2 (09:15→20:33)
[2023-03-28] MEDS: FERROUS SULFATE UDC 300 MG/5 ML UDC GT SCH ×2 (09:16→20:33)
[2023-03-28] MEDS: VALPROIC ACID 250 MG/5 ML UDC GT SCH ×2 (09:17→20:33)
[2023-03-28] MEDS: VANCOMYCIN 0.75 GM in IV D5W 250 ML IV SCH ×2 (09:50→20:33)
[2023-03-28 12:00] VITALS: BP 105/62; TEMP 99.2; O2SAT 97
[2023-03-28 16:00] VITALS: BP 107/69; TEMP 97.9; O2SAT 98
[2023-03-28 20:00] VITALS: BP 96/67; TEMP 97.5; O2SAT 98
[2023-03-28] MEDS: ENOXAPARIN SODIUM 40 MG/0.4 ML DISP.SYRIN SQ SCH (21:50)
[2023-03-28] MEDS: LEVOTHYROXINE SODIUM 50 MCG TABLET GT SCH (23:00)
[2023-03-29] VITALS: BP 120/71; TEMP 97.7; O2SAT 98
[2023-03-29 04:00] VITALS: BP 119/63; TEMP 97.7; O2SAT 99
[2023-03-29] MEDS: MEROPENEM 1 G in IV NS 0.9% 100 ML IV SCH ×3 (05:26→20:29)
[2023-03-29 05:47] LABS: BASOPHILS % (AUTO) 0.2 % (0.0-2.0); EOSINOPHILS % (AUTO) 0.3 % (0.0-6.0); HEMATOCRIT 26 % (39-51); HEMOGLOBIN 8.3 g/dL (13.5-17.5); LYMPHOCYTES % (AUTO) 14.2 % (20.0-44.0); MEAN CORPUSCULAR HEMOGLOBIN 30 PG (26.0-33.0); MEAN CORPUSCULAR HGB CONC 32 g/dl (31.0-36.0); MEAN CORPUSCULAR VOLUME 93 fL (80-96); MONOCYTES # (AUTO) 0.5 K/uL (0.1-1.30); MONOCYTES % (AUTO) 7.7 % (2.0-12.0); NEUTROPHILS # (AUTO) 5.4 K/uL (1.8-8.9); NEUTROPHILS % (AUTO) 77.6 % (43.0-81.0); PLATELET COUNT (AUTO) 263 K/uL (150-450); RED CELL DISTRIBUTION WIDTH 15.6 % (11.5-15.0); WHITE BLOOD COUNT (AUTO) 6.9 K/uL (4.3-11.0)
[2023-03-29 06:10] LABS: CALCIUM, SERUM 9.1 mg/dL (8.5-10.1); CREATININE 0.3 mg/dL (0.6-1.3)
[2023-03-29 08:00] VITALS: BP 109/83; TEMP 98.8; O2SAT 100
[2023-03-29] MEDS: DANTROLENE SODIUM 25 MG CAPSULE GT SCH ×3 (08:52→20:35)
[2023-03-29] MEDS: LEVETIRACETAM SOL (5 ML) 100 MG/ML UDC GT SCH ×2 (08:52→20:34)
[2023-03-29] MEDS: FERROUS SULFATE UDC 300 MG/5 ML UDC GT SCH ×2 (08:52→20:33)
[2023-03-29] MEDS: VALPROIC ACID 250 MG/5 ML UDC GT SCH ×2 (08:52→20:34)
[2023-03-29] MEDS: ZINC SULFATE 220 MG CAPSULE GT SCH (08:53)
[2023-03-29] MEDS: VANCOMYCIN 0.75 GM in IV D5W 250 ML IV SCH ×2 (08:53→20:44)
[2023-03-29] MEDS: AMANTADINE HCL 100 MG CAPSULE GT SCH ×2 (08:53→20:40)
[2023-03-29] MEDS: PANTOPRAZOLE 40 MG/PACK PACK GT SCH (08:53)
[2023-03-29] MEDS: MULTIVIT W/MINERALS 1 TAB TABLET GT SCH (08:53)
[2023-03-29] MEDS: CHOLECALCIFEROL (VITAMIN D 3) 400 UNIT TABLET GT SCH (08:53)
[2023-03-29] MEDS: THERAHONEY GEL 1.5 OZ TUBE TP SCH (08:54)
[2023-03-29] MEDS: DAKINS QUARTER STRENGTH (0.125%) 480 ML BOTTLE TOP SCH (08:54)
[2023-03-29] MEDS: ARGININE/GLUTAMINE/CALCIUM BMB 1 EACH POWD.PACK GT SCH ×2 (08:54→16:15)
[2023-03-29 12:00] VITALS: BP 113/94; TEMP 99.1; O2SAT 100
[2023-03-29] MEDS: JEVITY 1.2 CAL 1,000 ML BOTTLE GT PRN (13:10)
[2023-03-29 16:00] VITALS: BP 140/109; TEMP 99.9; O2SAT 98
[2023-03-29] MEDS: ACETAMINOPHEN 650 MG/20.3 ML UDC GT PRN (16:15)
[2023-03-29 20:00] VITALS: BP 102/62; TEMP 99.1; O2SAT 93
[2023-03-29] MEDS: ENOXAPARIN SODIUM 40 MG/0.4 ML DISP.SYRIN SQ SCH (20:27)
[2023-03-29] MEDS: LEVOTHYROXINE SODIUM 50 MCG TABLET GT SCH (23:38)
[2023-03-30] VITALS: BP 107/63; TEMP 98.5; O2SAT 97
[2023-03-30 04:00] VITALS: BP 122/70; TEMP 98.5; O2SAT 97
[2023-03-30] MEDS: MEROPENEM 1 G in IV NS 0.9% 100 ML IV SCH ×3 (05:15→22:04)
[2023-03-30 07:47] LABS: CREATININE 0.3 mg/dL (0.6-1.3)
[2023-03-30 08:00] VITALS: BP 150/109; TEMP 98.8; O2SAT 97
[2023-03-30] MEDS: VALPROIC ACID 250 MG/5 ML UDC GT SCH ×2 (08:12→22:06)
[2023-03-30] MEDS: FERROUS SULFATE UDC 300 MG/5 ML UDC GT SCH ×2 (08:13→22:04)
[2023-03-30] MEDS: ZINC SULFATE 220 MG CAPSULE GT SCH (08:13)
[2023-03-30] MEDS: CHOLECALCIFEROL (VITAMIN D 3) 400 UNIT TABLET GT SCH (08:13)
[2023-03-30] MEDS: PANTOPRAZOLE 40 MG/PACK PACK GT SCH (08:13)
[2023-03-30] MEDS: MULTIVIT W/MINERALS 1 TAB TABLET GT SCH (08:13)
[2023-03-30] MEDS: AMANTADINE HCL 100 MG CAPSULE GT SCH ×2 (08:13→22:12)
[2023-03-30] MEDS: DANTROLENE SODIUM 25 MG CAPSULE GT SCH ×3 (08:13→22:05)
[2023-03-30] MEDS: LEVETIRACETAM SOL (5 ML) 100 MG/ML UDC GT SCH ×2 (08:13→22:07)
[2023-03-30] MEDS: ARGININE/GLUTAMINE/CALCIUM BMB 1 EACH POWD.PACK GT SCH ×2 (08:19→16:03)
[2023-03-30] MEDS: DAKINS QUARTER STRENGTH (0.125%) 480 ML BOTTLE TOP SCH (08:19)
[2023-03-30] MEDS: THERAHONEY GEL 1.5 OZ TUBE TP SCH (08:20)
[2023-03-30] MEDS: VANCOMYCIN 0.75 GM in IV D5W 250 ML IV SCH ×2 (09:23→22:07)
[2023-03-30] MEDS: ACETAMINOPHEN 650 MG/20.3 ML UDC GT PRN (12:55)
[2023-03-30 13:04] VITALS: BP 124/72; TEMP 100; O2SAT 97
[2023-03-30 16:00] VITALS: BP 111/89; TEMP 98.8; O2SAT 99
[2023-03-30] MEDS: ENOXAPARIN SODIUM 40 MG/0.4 ML DISP.SYRIN SQ SCH (22:03)
[2023-03-30] MEDS: LEVOTHYROXINE SODIUM 50 MCG TABLET GT SCH (22:07)
[2023-03-31] VITALS: BP 180/89; TEMP 99.7; O2SAT 96
[2023-03-31 04:00] VITALS: BP 123/73; TEMP 98.4; O2SAT 96
[2023-03-31] MEDS: MEROPENEM 1 G in IV NS 0.9% 100 ML IV SCH (04:31)
[2023-03-31 08:00] VITALS: BP 94/65; TEMP 98.8; O2SAT 98
[2023-03-31] MEDS: VANCOMYCIN 0.75 GM in IV D5W 250 ML IV SCH (08:57)
[2023-03-31] MEDS: ARGININE/GLUTAMINE/CALCIUM BMB 1 EACH POWD.PACK GT SCH ×2 (08:57→16:14)
[2023-03-31] MEDS: FERROUS SULFATE UDC 300 MG/5 ML UDC GT SCH ×2 (08:58→21:39)
[2023-03-31] MEDS: VALPROIC ACID 250 MG/5 ML UDC GT SCH ×2 (08:58→21:39)
[2023-03-31] MEDS: PANTOPRAZOLE 40 MG/PACK PACK GT SCH (08:59)
[2023-03-31] MEDS: DANTROLENE SODIUM 25 MG CAPSULE GT SCH ×3 (08:59→21:39)
[2023-03-31] MEDS: AMANTADINE HCL 100 MG CAPSULE GT SCH ×2 (08:59→21:39)
[2023-03-31] MEDS: CHOLECALCIFEROL (VITAMIN D 3) 400 UNIT TABLET GT SCH (08:59)
[2023-03-31] MEDS: ZINC SULFATE 220 MG CAPSULE GT SCH (08:59)
[2023-03-31] MEDS: LEVETIRACETAM SOL (5 ML) 100 MG/ML UDC GT SCH ×2 (08:59→21:39)
[2023-03-31] MEDS: MULTIVIT W/MINERALS 1 TAB TABLET GT SCH (09:00)
[2023-03-31 09:02] LABS: CREATININE 0.4 mg/dL (0.6-1.3); POTASSIUM 4.1 mmol/L (3.5-5.1)
[2023-03-31] MEDS: THERAHONEY GEL 1.5 OZ TUBE TP SCH (10:03)
[2023-03-31] MEDS: DAKINS QUARTER STRENGTH (0.125%) 480 ML BOTTLE TOP SCH (10:41)
[2023-03-31 12:00] VITALS: BP 92/64; TEMP 99; O2SAT 98
[2023-03-31 16:00] VITALS: BP 103/74; TEMP 100; O2SAT 98
[2023-03-31] MEDS: JEVITY 1.2 CAL 1,000 ML BOTTLE GT PRN (18:19)
[2023-03-31 20:00] VITALS: BP 102/59; TEMP 100; O2SAT 97
[2023-03-31] MEDS: LEVOTHYROXINE SODIUM 50 MCG TABLET GT SCH (21:38)
[2023-03-31] MEDS: ENOXAPARIN SODIUM 40 MG/0.4 ML DISP.SYRIN SQ SCH (21:40)
[2023-04-01] VITALS: BP 109/59; TEMP 100; O2SAT 97
[2023-04-01 04:00] VITALS: BP 105/58; TEMP 99.3; O2SAT 98
[2023-04-01 08:00] VITALS: BP 124/69; TEMP 99.1; O2SAT 95
[2023-04-01] MEDS: ARGININE/GLUTAMINE/CALCIUM BMB 1 EACH POWD.PACK GT SCH ×2 (08:20→17:39)
[2023-04-01] MEDS: ZINC SULFATE 220 MG CAPSULE GT SCH (08:22)
[2023-04-01] MEDS: PANTOPRAZOLE 40 MG/PACK PACK GT SCH (08:23)
[2023-04-01] MEDS: LEVETIRACETAM SOL (5 ML) 100 MG/ML UDC GT SCH ×2 (08:23→21:30)
[2023-04-01] MEDS: FERROUS SULFATE UDC 300 MG/5 ML UDC GT SCH ×2 (08:23→21:31)
[2023-04-01] MEDS: VALPROIC ACID 250 MG/5 ML UDC GT SCH ×2 (08:23→21:31)
[2023-04-01] MEDS: CHOLECALCIFEROL (VITAMIN D 3) 400 UNIT TABLET GT SCH (08:24)
[2023-04-01] MEDS: THERAHONEY GEL 1.5 OZ TUBE TP SCH (08:24)
[2023-04-01] MEDS: AMANTADINE HCL 100 MG CAPSULE GT SCH ×2 (08:24→21:32)
[2023-04-01] MEDS: DANTROLENE SODIUM 25 MG CAPSULE GT SCH ×3 (08:24→21:31)
[2023-04-01] MEDS: DAKINS QUARTER STRENGTH (0.125%) 480 ML BOTTLE TOP SCH (08:36)
[2023-04-01] MEDS: MULTIVIT W/MINERALS 1 TAB TABLET GT SCH (08:40)
[2023-04-01 12:00] VITALS: BP 95/60; TEMP 98.6; O2SAT 96
[2023-04-01] MEDS: JEVITY 1.2 CAL 1,000 ML BOTTLE GT PRN (14:55)
[2023-04-01] MEDS: ACETAMINOPHEN 650 MG/20.3 ML UDC GT PRN (15:07)
[2023-04-01 16:00] VITALS: BP 96/62; TEMP 98.6; O2SAT 96
[2023-04-01 20:00] VITALS: BP 152/71; TEMP 97.9; O2SAT 97
[2023-04-01] MEDS: LEVOTHYROXINE SODIUM 50 MCG TABLET GT SCH (21:31)
[2023-04-01] MEDS: ENOXAPARIN SODIUM 40 MG/0.4 ML DISP.SYRIN SQ SCH (21:33)
[2023-04-02] VITALS: BP 108/73; TEMP 97.9; O2SAT 95
[2023-04-02 04:00] VITALS: BP 114/62; TEMP 97.9; O2SAT 95
[2023-04-02] MEDS: ACETAMINOPHEN 650 MG/20.3 ML UDC GT PRN ×2 (04:13→15:39)
[2023-04-02 06:59] LABS: BASOPHILS % (AUTO) 0.1 % (0.0-2.0); EOSINOPHILS % (AUTO) 0.5 % (0.0-6.0); HEMATOCRIT 26 % (39-51); HEMOGLOBIN 8.4 g/dL (13.5-17.5); LYMPHOCYTES % (AUTO) 9.2 % (20.0-44.0); MEAN CORPUSCULAR HEMOGLOBIN 30 PG (26.0-33.0); MEAN CORPUSCULAR HGB CONC 32 g/dl (31.0-36.0); MEAN CORPUSCULAR VOLUME 93 fL (80-96); MONOCYTES # (AUTO) 0.3 K/uL (0.1-1.30); MONOCYTES % (AUTO) 3.1 % (2.0-12.0); NEUTROPHILS # (AUTO) 9.4 K/uL (1.8-8.9); NEUTROPHILS % (AUTO) 87.1 % (43.0-81.0); PLATELET COUNT (AUTO) 327 K/uL (150-450); RED BLOOD CELL COUNT(AUTO) 2.84 MIL/uL (4.5-6.0); RED CELL DISTRIBUTION WIDTH 15.7 % (11.5-15.0); WHITE BLOOD COUNT (AUTO) 10.8 K/uL (4.3-11.0)
[2023-04-02 07:09] LABS: CALCIUM, SERUM 9.3 mg/dL (8.5-10.1); CREATININE 0.4 mg/dL (0.6-1.3); POTASSIUM 4.3 mmol/L (3.5-5.1)
[2023-04-02 08:00] VITALS: BP 105/59; TEMP 99.6; O2SAT 94
[2023-04-02] MEDS: DANTROLENE SODIUM 25 MG CAPSULE GT SCH ×3 (08:15→21:14)
[2023-04-02] MEDS: FERROUS SULFATE UDC 300 MG/5 ML UDC GT SCH ×2 (08:16→21:15)
[2023-04-02] MEDS: CHOLECALCIFEROL (VITAMIN D 3) 400 UNIT TABLET GT SCH (08:16)
[2023-04-02] MEDS: LEVETIRACETAM SOL (5 ML) 100 MG/ML UDC GT SCH ×2 (08:16→21:16)
[2023-04-02] MEDS: AMANTADINE HCL 100 MG CAPSULE GT SCH ×2 (08:16→21:16)
[2023-04-02] MEDS: ZINC SULFATE 220 MG CAPSULE GT SCH (08:16)
[2023-04-02] MEDS: VALPROIC ACID 250 MG/5 ML UDC GT SCH ×2 (08:16→21:15)
[2023-04-02] MEDS: PANTOPRAZOLE 40 MG/PACK PACK GT SCH (08:16)
[2023-04-02] MEDS: MULTIVIT W/MINERALS 1 TAB TABLET GT SCH (08:16)
[2023-04-02] MEDS: ARGININE/GLUTAMINE/CALCIUM BMB 1 EACH POWD.PACK GT SCH ×2 (08:29→16:10)
[2023-04-02] MEDS: THERAHONEY GEL 1.5 OZ TUBE TP SCH (08:30)
[2023-04-02] MEDS: DAKINS QUARTER STRENGTH (0.125%) 480 ML BOTTLE TOP SCH (08:30)
[2023-04-02] MEDS ORDERED: NUTR1PAC14 GT (10:15)
[2023-04-02] MEDS ORDERED: DANT25CA GT (10:15)
[2023-04-02] MEDS ORDERED: Multivit W/Minerals GT (10:15)
[2023-04-02] MEDS ORDERED: SODI473S8 TOP (10:15)
[2023-04-02] MEDS ORDERED: PANT40SU2 GT (10:15)
[2023-04-02] MEDS ORDERED: COLL30OI TP (10:15)
[2023-04-02] MEDS ORDERED: Zinc Sulfate GT (10:15)
[2023-04-02] MEDS ORDERED: CHOL400T11 GT (10:15)
[2023-04-02] MEDS ORDERED: Prosource GT (10:15)
[2023-04-02] MEDS: JEVITY 1.2 CAL 1,000 ML BOTTLE GT PRN (11:47)
[2023-04-02 12:00] VITALS: BP 99/65; TEMP 101.6; O2SAT 94
[2023-04-02 16:00] VITALS: BP 106/63; TEMP 100.6; O2SAT 93
[2023-04-02] MEDS: PROSOURCE / PROSTAT (PYXIS) 30 ML UDC GT SCH (16:10)
[2023-04-02 20:00] VITALS: BP 107/66; TEMP 101.3; O2SAT 92
[2023-04-02] MEDS: ENOXAPARIN SODIUM 40 MG/0.4 ML DISP.SYRIN SQ SCH (21:28)
[2023-04-02] MEDS: LEVOTHYROXINE SODIUM 50 MCG TABLET GT SCH (21:31)
[2023-04-03] VITALS (7 sets, daily range): BP systolic 81–94; BP diastolic 54–67; TEMP 98.1–103; O2SAT 94–100
[2023-04-03] MEDS: ACETAMINOPHEN 650 MG/20.3 ML UDC GT PRN ×2 (01:51→21:08)
[2023-04-03 07:51] LABS: BASOPHILS % (AUTO) 0.2 % (0.0-2.0); EOSINOPHILS % (AUTO) 0.1 % (0.0-6.0); HEMATOCRIT 28 % (39-51); HEMOGLOBIN 8.7 g/dL (13.5-17.5); LYMPHOCYTES # (AUTO) 1.6 K/uL (0.8-4.8); LYMPHOCYTES % (AUTO) 13.8 % (20.0-44.0); MEAN CORPUSCULAR HEMOGLOBIN 29 PG (26.0-33.0); MEAN CORPUSCULAR HGB CONC 31 g/dl (31.0-36.0); MEAN CORPUSCULAR VOLUME 94 fL (80-96); MONOCYTES # (AUTO) 0.3 K/uL (0.1-1.30); NEUTROPHILS # (AUTO) 9.4 K/uL (1.8-8.9); NEUTROPHILS % (AUTO) 82.9 % (43.0-81.0); PLATELET COUNT (AUTO) 298 K/uL (150-450); RED BLOOD CELL COUNT(AUTO) 2.95 MIL/uL (4.5-6.0); WHITE BLOOD COUNT (AUTO) 11.3 K/uL (4.3-11.0)
[2023-04-03 08:42] LABS: CALCIUM, SERUM 9.1 mg/dL (8.5-10.1); CREATININE 0.4 mg/dL (0.6-1.3); POTASSIUM 4.6 mmol/L (3.5-5.1)
[2023-04-03] MEDS: VALPROIC ACID 250 MG/5 ML UDC GT SCH ×2 (09:03→20:27)
[2023-04-03] MEDS: LEVETIRACETAM SOL (5 ML) 100 MG/ML UDC GT SCH ×2 (09:03→20:27)
[2023-04-03] MEDS: DANTROLENE SODIUM 25 MG CAPSULE GT SCH ×3 (09:04→20:28)
[2023-04-03] MEDS: ZINC SULFATE 220 MG CAPSULE GT SCH (09:04)
[2023-04-03] MEDS: CHOLECALCIFEROL (VITAMIN D 3) 400 UNIT TABLET GT SCH (09:04)
[2023-04-03] MEDS: THERAHONEY GEL 1.5 OZ TUBE TP SCH (09:04)
[2023-04-03] MEDS: MULTIVIT W/MINERALS 1 TAB TABLET GT SCH (09:04)
[2023-04-03] MEDS: PANTOPRAZOLE 40 MG/PACK PACK GT SCH (09:04)
[2023-04-03] MEDS: DAKINS QUARTER STRENGTH (0.125%) 480 ML BOTTLE TOP SCH (09:04)
[2023-04-03] MEDS: AMANTADINE HCL 100 MG CAPSULE GT SCH ×2 (09:04→20:28)
[2023-04-03] MEDS: FERROUS SULFATE UDC 300 MG/5 ML UDC GT SCH ×2 (09:04→20:27)
[2023-04-03] MEDS: PROSOURCE / PROSTAT (PYXIS) 30 ML UDC GT SCH ×2 (09:06→17:30)
[2023-04-03] MEDS: ARGININE/GLUTAMINE/CALCIUM BMB 1 EACH POWD.PACK GT SCH ×2 (09:06→17:30)
[2023-04-03] MEDS: JEVITY 1.2 CAL 1,000 ML BOTTLE GT PRN (11:48)
[2023-04-03] MEDS: ENOXAPARIN SODIUM 40 MG/0.4 ML DISP.SYRIN SQ SCH (20:32)
[2023-04-03] MEDS: LEVOTHYROXINE SODIUM 50 MCG TABLET GT SCH (21:08)
[2023-04-04] VITALS (67 sets, daily range): BP systolic 61–143; BP diastolic 36–113; TEMP 99.9–103.7; O2SAT 89–100
[2023-04-04] MEDS ORDERED: IV NS 0.9% 500 ML IV ONE ×2 (05:30)
[2023-04-04] MEDS ORDERED: PHENYLEPHRINE 50 MG in IV NS 0.9% 245 ML IV PRN (05:30)
[2023-04-04] MEDS ORDERED: NOREPINEPHRINE 8 MG in IV NS 0.9% 242 ML IV PRN ×2 (05:30→17:00)
[2023-04-04] MEDS ORDERED: MEROPENEM 1 G in IV NS 0.9% 100 ML IV ONE (06:00)
[2023-04-04] MEDS: ACETAMINOPHEN 650 MG/20.3 ML UDC GT PRN (06:16)
[2023-04-04 06:40] LABS: BASOPHILS % (AUTO) 0.1 % (0.0-2.0); HEMATOCRIT 26 % (39-51); LYMPHOCYTES # (AUTO) 1.6 K/uL (0.8-4.8); LYMPHOCYTES % (AUTO) 22.1 % (20.0-44.0); MEAN CORPUSCULAR HEMOGLOBIN 29 PG (26.0-33.0); MEAN CORPUSCULAR HGB CONC 32 g/dl (31.0-36.0); MEAN CORPUSCULAR VOLUME 93 fL (80-96); MONOCYTES # (AUTO) 0.5 K/uL (0.1-1.30); MONOCYTES % (AUTO) 7.1 % (2.0-12.0); NEUTROPHILS % (AUTO) 70.7 % (43.0-81.0); PLATELET COUNT (AUTO) 182 K/uL (150-450); RED BLOOD CELL COUNT(AUTO) 2.74 MIL/uL (4.5-6.0); RED CELL DISTRIBUTION WIDTH 15.5 % (11.5-15.0); WHITE BLOOD COUNT (AUTO) 7.1 K/uL (4.3-11.0)
[2023-04-04] MEDS: PHENYLEPHRINE 50 MG in IV NS 0.9% 245 ML IV PRN ×2 (07:58→17:25)
[2023-04-04 08:55] LABS: ALBUMIN 1.8 g/dL (3.4-5.0); BILIRUBIN,TOTAL 0.3 mg/dL (0.2-1.0); CALCIUM, SERUM 7.4 mg/dL (8.5-10.1); CREATININE 0.7 mg/dL (0.6-1.3); POTASSIUM 4.1 mmol/L (3.5-5.1); TOTAL PROTEIN, SERUM 6.6 g/dL (6.4-8.2)
[2023-04-04] MEDS: IV NS 0.9% 1,000 ML IV PRN ×2 (08:57→19:53)
[2023-04-04] MEDS: DANTROLENE SODIUM 25 MG CAPSULE GT SCH ×3 (09:00→20:54)
[2023-04-04] MEDS ORDERED: IV NS 0.9% 1,000 ML BAG IV PRN (09:00)
[2023-04-04] MEDS ORDERED: VANCOMYCIN 1 GM in IV D5W 250ml IV ONE (09:30)
[2023-04-04] MEDS: MULTIVIT W/MINERALS 1 TAB TABLET GT SCH (11:47)
[2023-04-04] MEDS: FERROUS SULFATE UDC 300 MG/5 ML UDC GT SCH ×2 (11:48→20:54)
[2023-04-04] MEDS: VALPROIC ACID 250 MG/5 ML UDC GT SCH ×2 (11:48→20:54)
[2023-04-04] MEDS: PANTOPRAZOLE 40 MG/PACK PACK GT SCH (11:48)
[2023-04-04] MEDS: ZINC SULFATE 220 MG CAPSULE GT SCH (11:48)
[2023-04-04] MEDS: LEVETIRACETAM SOL (5 ML) 100 MG/ML UDC GT SCH ×2 (11:48→20:54)
[2023-04-04] MEDS: AMANTADINE HCL 100 MG CAPSULE GT SCH ×2 (11:49→20:53)
[2023-04-04] MEDS: PROSOURCE / PROSTAT (PYXIS) 30 ML UDC GT SCH ×2 (11:50→17:25)
[2023-04-04] MEDS: ARGININE/GLUTAMINE/CALCIUM BMB 1 EACH POWD.PACK GT SCH ×2 (11:50→17:25)
[2023-04-04] MEDS: CHOLECALCIFEROL (VITAMIN D 3) 400 UNIT TABLET GT SCH (11:51)
[2023-04-04] MEDS: DAKINS QUARTER STRENGTH (0.125%) 480 ML BOTTLE TOP SCH (11:52)
[2023-04-04] MEDS: THERAHONEY GEL 1.5 OZ TUBE TP SCH (11:52)
[2023-04-04] MEDS ORDERED: MEROPENEM 1 G in IV NS 0.9% 100 ML IV SCH (13:00)
[2023-04-04] MEDS: MEROPENEM 1 G in IV NS 0.9% 100 ML IV SCH ×2 (14:29→20:54)
[2023-04-04 16:46] LABS: INR 1.3 (0.91-1.10); PARTIAL THROMBOPLASTIN TIME 29.8 SEC (24.3-34.3); PROTHROMBIN TIME 13.5 SECS (9.2-11.1)
[2023-04-04] MEDS ORDERED: PHENYLEPHRINE 100 MG in IV NS 0.9% 240 ML IV PRN (19:30)
[2023-04-04] MEDS: JEVITY 1.2 CAL 1,000 ML BOTTLE GT PRN (19:55)
[2023-04-04] MEDS: ENOXAPARIN SODIUM 40 MG/0.4 ML DISP.SYRIN SQ SCH (20:53)
[2023-04-04] MEDS: LEVOTHYROXINE SODIUM 50 MCG TABLET GT SCH (21:05)
[2023-04-04] MEDS: PHENYLEPHRINE 100 MG in IV NS 0.9% 240 ML IV PRN (23:41)
[2023-04-05] VITALS (97 sets, daily range): BP systolic 84–128; BP diastolic 46–95; TEMP 98.1–100.4; O2SAT 93–100
[2023-04-05] MEDS: ACETAMINOPHEN 650 MG/20.3 ML UDC GT PRN ×2 (04:02→20:56)
[2023-04-05] MEDS: MEROPENEM 1 G in IV NS 0.9% 100 ML IV SCH ×3 (04:03→21:00)
[2023-04-05 04:53] LABS: BASOPHILS % (AUTO) 0.1 % (0.0-2.0); HEMATOCRIT 24 % (39-51); HEMOGLOBIN 7.5 g/dL (13.5-17.5); LYMPHOCYTES # (AUTO) 1.4 K/uL (0.8-4.8); LYMPHOCYTES % (AUTO) 14.1 % (20.0-44.0); MEAN CORPUSCULAR HEMOGLOBIN 29 PG (26.0-33.0); MEAN CORPUSCULAR HGB CONC 32 g/dl (31.0-36.0); MEAN CORPUSCULAR VOLUME 93 fL (80-96); MONOCYTES # (AUTO) 0.5 K/uL (0.1-1.30); MONOCYTES % (AUTO) 5.1 % (2.0-12.0); NEUTROPHILS # (AUTO) 7.9 K/uL (1.8-8.9); NEUTROPHILS % (AUTO) 80.7 % (43.0-81.0); PLATELET COUNT (AUTO) 213 K/uL (150-450); RED BLOOD CELL COUNT(AUTO) 2.57 MIL/uL (4.5-6.0); RED CELL DISTRIBUTION WIDTH 16.1 % (11.5-15.0); WHITE BLOOD COUNT (AUTO) 9.7 K/uL (4.3-11.0)
[2023-04-05 05:04] LABS: CALCIUM, SERUM 8.4 mg/dL (8.5-10.1); CREATININE 0.4 mg/dL (0.6-1.3); POTASSIUM 3.3 mmol/L (3.5-5.1)
[2023-04-05] MEDS: IV NS 0.9% 1,000 ML IV PRN (06:31)
[2023-04-05] MEDS ORDERED: POTASSIUM CHLORIDE 20 MEQ POWDER PACKET GT ONE (09:00)
[2023-04-05] MEDS ORDERED: POTASSIUM CHLORIDE 20 MEQ POWDER PACKET GT SCH (09:00)
[2023-04-05] MEDS: FERROUS SULFATE UDC 300 MG/5 ML UDC GT SCH ×2 (09:01→20:56)
[2023-04-05] MEDS: LEVETIRACETAM SOL (5 ML) 100 MG/ML UDC GT SCH ×2 (09:01→20:56)
[2023-04-05] MEDS: VALPROIC ACID 250 MG/5 ML UDC GT SCH ×2 (09:01→20:56)
[2023-04-05] MEDS: DANTROLENE SODIUM 25 MG CAPSULE GT SCH ×3 (09:02→20:56)
[2023-04-05] MEDS: CHOLECALCIFEROL (VITAMIN D 3) 400 UNIT TABLET GT SCH (09:02)
[2023-04-05] MEDS: MULTIVIT W/MINERALS 1 TAB TABLET GT SCH (09:02)
[2023-04-05] MEDS: ZINC SULFATE 220 MG CAPSULE GT SCH (09:02)
[2023-04-05] MEDS: PANTOPRAZOLE 40 MG/PACK PACK GT SCH (09:02)
[2023-04-05] MEDS: AMANTADINE HCL 100 MG CAPSULE GT SCH ×2 (09:02→20:56)
[2023-04-05] MEDS: PROSOURCE / PROSTAT (PYXIS) 30 ML UDC GT SCH ×2 (09:03→17:52)
[2023-04-05] MEDS: ARGININE/GLUTAMINE/CALCIUM BMB 1 EACH POWD.PACK GT SCH ×2 (09:03→17:52)
[2023-04-05] MEDS: DAKINS QUARTER STRENGTH (0.125%) 480 ML BOTTLE TOP SCH (09:04)
[2023-04-05] MEDS: THERAHONEY GEL 1.5 OZ TUBE TP SCH (09:04)
[2023-04-05] MEDS: VANCOMYCIN HCL 0.75 GM in IV D5W 250 ML IV SCH ×2 (10:42→21:00)
[2023-04-05] MEDS: PHENYLEPHRINE 100 MG in IV NS 0.9% 240 ML IV PRN (12:16)
[2023-04-05] MEDS: IV 1/2NS 1000 ML 1,000 ML IV SCH (16:26)
[2023-04-05] MEDS: IV NS 0.9% 250 ML IV PRN (16:44)
[2023-04-05] MEDS: ENOXAPARIN SODIUM 40 MG/0.4 ML DISP.SYRIN SQ SCH (20:57)
[2023-04-05] MEDS: LEVOTHYROXINE SODIUM 50 MCG TABLET GT SCH (21:00)
[2023-04-06] VITALS (97 sets, daily range): BP systolic 85–133; BP diastolic 55–101; TEMP 99.9–102.1; O2SAT 91–100
[2023-04-06] MEDS: PHENYLEPHRINE 100 MG in IV NS 0.9% 240 ML IV PRN ×2 (01:06→15:47)
[2023-04-06] MEDS: IV 1/2NS 1000 ML 1,000 ML IV SCH ×2 (02:41→18:28)
[2023-04-06] MEDS: MEROPENEM 1 G in IV NS 0.9% 100 ML IV SCH ×3 (04:55→21:11)
[2023-04-06 05:02] LABS: BASOPHILS % (AUTO) 0.1 % (0.0-2.0); HEMATOCRIT 23 % (39-51); HEMOGLOBIN 7.1 g/dL (13.5-17.5); LYMPHOCYTES # (AUTO) 0.9 K/uL (0.8-4.8); LYMPHOCYTES % (AUTO) 13.8 % (20.0-44.0); MEAN CORPUSCULAR HEMOGLOBIN 29 PG (26.0-33.0); MEAN CORPUSCULAR HGB CONC 32 g/dl (31.0-36.0); MEAN CORPUSCULAR VOLUME 93 fL (80-96); MONOCYTES # (AUTO) 0.3 K/uL (0.1-1.30); MONOCYTES % (AUTO) 4.5 % (2.0-12.0); NEUTROPHILS # (AUTO) 5.4 K/uL (1.8-8.9); NEUTROPHILS % (AUTO) 81.6 % (43.0-81.0); PLATELET COUNT (AUTO) 139 K/uL (150-450); RED BLOOD CELL COUNT(AUTO) 2.42 MIL/uL (4.5-6.0); RED CELL DISTRIBUTION WIDTH 15.6 % (11.5-15.0); WHITE BLOOD COUNT (AUTO) 6.6 K/uL (4.3-11.0)
[2023-04-06 05:19] LABS: CREATININE 0.4 mg/dL (0.6-1.3); POTASSIUM 3.9 mmol/L (3.5-5.1)
[2023-04-06] MEDS: JEVITY 1.2 CAL 1,000 ML BOTTLE GT PRN (05:36)
[2023-04-06] MEDS: LEVETIRACETAM SOL (5 ML) 100 MG/ML UDC GT SCH ×2 (08:34→21:12)
[2023-04-06] MEDS: FERROUS SULFATE UDC 300 MG/5 ML UDC GT SCH ×2 (08:34→21:12)
[2023-04-06] MEDS: PANTOPRAZOLE 40 MG/PACK PACK GT SCH (08:34)
[2023-04-06] MEDS: ARGININE/GLUTAMINE/CALCIUM BMB 1 EACH POWD.PACK GT SCH ×2 (08:34→18:29)
[2023-04-06] MEDS: VALPROIC ACID 250 MG/5 ML UDC GT SCH ×2 (08:35→21:12)
[2023-04-06] MEDS: MULTIVIT W/MINERALS 1 TAB TABLET GT SCH (08:35)
[2023-04-06] MEDS: AMANTADINE HCL 100 MG CAPSULE GT SCH ×2 (08:35→21:12)
[2023-04-06] MEDS: CHOLECALCIFEROL (VITAMIN D 3) 400 UNIT TABLET GT SCH (08:35)
[2023-04-06] MEDS: VANCOMYCIN HCL 0.75 GM in IV D5W 250 ML IV SCH ×2 (08:36→21:11)
[2023-04-06] MEDS: DANTROLENE SODIUM 25 MG CAPSULE GT SCH ×3 (08:36→21:11)
[2023-04-06] MEDS: PROSOURCE / PROSTAT (PYXIS) 30 ML UDC GT SCH ×2 (08:36→18:29)
[2023-04-06] MEDS: DAKINS QUARTER STRENGTH (0.125%) 480 ML BOTTLE TOP SCH (08:37)
[2023-04-06] MEDS: THERAHONEY GEL 1.5 OZ TUBE TP SCH (08:37)
[2023-04-06] MEDS: ACETAMINOPHEN 650 MG/20.3 ML UDC GT PRN ×2 (12:57→21:18)
[2023-04-06 17:57] LABS: APPEARANCE,URINE SLIGHTLY CLOUDY (CLEAR); BILIRUBIN,URINE NEGATIVE (NEGATIVE); BLOOD, URINE 3+ Ery/uL (NEGATIVE); COLOR,URINE YELLOW (YELLOW); KETONES,URINE NEGATIVE (NEGATIVE); LEUKOCYTE ESTERASE ,URINE TRACE (NEGATIVE); NITRITE, URINE NEGATIVE (NEGATIVE); PH,URINE 5.5 (5.0-8.0); PROTEIN,URINE TRACE mg/dl (NEGATIVE); UGLUCOSE NEGATIVE (NEGATIVE); UROBILINOGEN,URINE 0.2 EU/dL (0.2)
[2023-04-06] MEDS: IV NS 0.9% 250 ML IV PRN (18:30)
[2023-04-06 19:26] LABS: ADD URINE CULTURE NO; BACTERIA,URINE RARE /HPF (None Seen); CALCIUM OXALATE CRYSTALS,UR Few /HPF (None Seen); MUCUS,URINE Few /LPF (None Seen); RBC,URINE 51-80 /HPF (0-2)
[2023-04-06] MEDS: ENOXAPARIN SODIUM 40 MG/0.4 ML DISP.SYRIN SQ SCH (21:00)
[2023-04-06] MEDS: LEVOTHYROXINE SODIUM 50 MCG TABLET GT SCH (21:12)
[2023-04-07] VITALS (103 sets, daily range): BP systolic 80–150; BP diastolic 50–110; TEMP 99.3–101.9; O2SAT 87–100
[2023-04-07] MEDS: MEROPENEM 1 G in IV NS 0.9% 100 ML IV SCH ×3 (04:18→20:53)
[2023-04-07 04:38] LABS: BASOPHILS % (AUTO) 0.3 % (0.0-2.0); CALCIUM, SERUM 8.1 mg/dL (8.5-10.1); CREATININE 0.3 mg/dL (0.6-1.3); EOSINOPHILS % (AUTO) 0.3 % (0.0-6.0); LYMPHOCYTES # (AUTO) 1.3 K/uL (0.8-4.8); LYMPHOCYTES % (AUTO) 30.8 % (20.0-44.0); MEAN CORPUSCULAR HEMOGLOBIN 30 PG (26.0-33.0); MEAN CORPUSCULAR HGB CONC 32 g/dl (31.0-36.0); MEAN CORPUSCULAR VOLUME 92 fL (80-96); MONOCYTES # (AUTO) 0.2 K/uL (0.1-1.30); MONOCYTES % (AUTO) 4.2 % (2.0-12.0); NEUTROPHILS # (AUTO) 2.7 K/uL (1.8-8.9); NEUTROPHILS % (AUTO) 64.4 % (43.0-81.0); PLATELET COUNT (AUTO) 122 K/uL (150-450); POTASSIUM 3.6 mmol/L (3.5-5.1); RED BLOOD CELL COUNT(AUTO) 2.14 MIL/uL (4.5-6.0); RED CELL DISTRIBUTION WIDTH 15.2 % (11.5-15.0); WHITE BLOOD COUNT (AUTO) 4.2 K/uL (4.3-11.0)
[2023-04-07 05:51] LABS: HEMOGLOBIN 6.3 g/dL (13.5-17.5)
[2023-04-07 05:52] LABS: HEMATOCRIT 20 % (39-51)
[2023-04-07] MEDS: PHENYLEPHRINE 100 MG in IV NS 0.9% 240 ML IV PRN (06:49)
[2023-04-07 07:02] LABS: ANISOCYTOSIS 1+; LYMPHOCYTES % (MANUAL) 33 % (16-48); MONOCYTES % (MANUAL) 3 % (0-11.0); NEUTROPHILS % (MANUAL) 64 (42-76); PLATELET ESTIMATE DECREASED
[2023-04-07] MEDS: AMANTADINE HCL 100 MG CAPSULE GT SCH ×2 (09:00→21:11)
[2023-04-07] MEDS: FERROUS SULFATE UDC 300 MG/5 ML UDC GT SCH ×2 (09:00→21:10)
[2023-04-07] MEDS: LEVETIRACETAM SOL (5 ML) 100 MG/ML UDC GT SCH ×2 (09:00→21:10)
[2023-04-07] MEDS: VALPROIC ACID 250 MG/5 ML UDC GT SCH ×2 (09:00→21:10)
[2023-04-07] MEDS: PANTOPRAZOLE 40 MG/PACK PACK GT SCH (09:01)
[2023-04-07] MEDS: VANCOMYCIN 1 GM in IV D5W 250 ML IV SCH ×2 (09:01→21:11)
[2023-04-07] MEDS: ARGININE/GLUTAMINE/CALCIUM BMB 1 EACH POWD.PACK GT SCH ×2 (09:01→17:25)
[2023-04-07] MEDS: DANTROLENE SODIUM 25 MG CAPSULE GT SCH ×3 (09:01→21:11)
[2023-04-07] MEDS: PROSOURCE / PROSTAT (PYXIS) 30 ML UDC GT SCH ×2 (09:01→17:25)
[2023-04-07] MEDS: CHOLECALCIFEROL (VITAMIN D 3) 400 UNIT TABLET GT SCH (09:01)
[2023-04-07] MEDS: MULTIVIT W/MINERALS 1 TAB TABLET GT SCH (09:01)
[2023-04-07] MEDS: JEVITY 1.2 CAL 1,000 ML BOTTLE GT PRN (09:02)
[2023-04-07] MEDS: THERAHONEY GEL 1.5 OZ TUBE TP SCH (09:24)
[2023-04-07] MEDS: DAKINS QUARTER STRENGTH (0.125%) 480 ML BOTTLE TOP SCH (10:08)
[2023-04-07] MEDS: IV 1/2NS 1000 ML 1,000 ML IV SCH (12:28)
[2023-04-07 18:30] LABS: HEMOGLOBIN 7.6 g/dL (13.5-17.5)
[2023-04-07] MEDS: ACETAMINOPHEN 650 MG/20.3 ML UDC GT PRN (19:04)
[2023-04-07] MEDS: ENOXAPARIN SODIUM 40 MG/0.4 ML DISP.SYRIN SQ SCH (21:09)
[2023-04-07] MEDS: LEVOTHYROXINE SODIUM 50 MCG TABLET GT SCH (21:28)
[2023-04-07 22:21] LABS: OCCULT BLOOD STOOL NEGATIVE (NEGATIVE)
[2023-04-08] VITALS (101 sets, daily range): BP systolic 78–162; BP diastolic 38–147; TEMP 97.8–100.8; O2SAT 92–100
[2023-04-08] MEDS: ACETAMINOPHEN 650 MG/20.3 ML UDC GT PRN ×2 (03:31→16:15)
[2023-04-08] MEDS: JEVITY 1.2 CAL 1,000 ML BOTTLE GT PRN (03:55)
[2023-04-08] MEDS: PHENYLEPHRINE 100 MG in IV NS 0.9% 240 ML IV PRN (04:02)
[2023-04-08] MEDS: MEROPENEM 1 G in IV NS 0.9% 100 ML IV SCH ×3 (04:03→20:14)
[2023-04-08 04:24] LABS: BASOPHILS % (AUTO) 0.1 % (0.0-2.0); EOSINOPHILS # (AUTO) 0.1 K/uL (0.0-0.7); EOSINOPHILS % (AUTO) 2.1 % (0.0-6.0); HEMATOCRIT 22 % (39-51); HEMOGLOBIN 7.2 g/dL (13.5-17.5); LYMPHOCYTES # (AUTO) 0.7 K/uL (0.8-4.8); LYMPHOCYTES % (AUTO) 24.8 % (20.0-44.0); MEAN CORPUSCULAR HEMOGLOBIN 30 PG (26.0-33.0); MEAN CORPUSCULAR HGB CONC 33 g/dl (31.0-36.0); MEAN CORPUSCULAR VOLUME 92 fL (80-96); MONOCYTES # (AUTO) 0.2 K/uL (0.1-1.30); MONOCYTES % (AUTO) 6.9 % (2.0-12.0); NEUTROPHILS % (AUTO) 66.1 % (43.0-81.0); PLATELET COUNT (AUTO) 112 K/uL (150-450); RED BLOOD CELL COUNT(AUTO) 2.37 MIL/uL (4.5-6.0); RED CELL DISTRIBUTION WIDTH 14.1 % (11.5-15.0)
[2023-04-08 04:37] LABS: CALCIUM, SERUM 8.4 mg/dL (8.5-10.1); CREATININE 0.2 mg/dL (0.6-1.3); POTASSIUM 3.8 mmol/L (3.5-5.1)
[2023-04-08] MEDS: IV 1/2NS 1000 ML 1,000 ML IV SCH (07:49)
[2023-04-08] MEDS: PROSOURCE / PROSTAT (PYXIS) 30 ML UDC GT SCH ×2 (08:14→16:03)
[2023-04-08] MEDS: DANTROLENE SODIUM 25 MG CAPSULE GT SCH ×3 (08:14→20:49)
[2023-04-08] MEDS: ARGININE/GLUTAMINE/CALCIUM BMB 1 EACH POWD.PACK GT SCH ×2 (08:14→16:03)
[2023-04-08] MEDS: CHOLECALCIFEROL (VITAMIN D 3) 400 UNIT TABLET GT SCH (08:15)
[2023-04-08] MEDS: MULTIVIT W/MINERALS 1 TAB TABLET GT SCH (08:15)
[2023-04-08] MEDS: VALPROIC ACID 250 MG/5 ML UDC GT SCH ×2 (08:15→20:49)
[2023-04-08] MEDS: FERROUS SULFATE UDC 300 MG/5 ML UDC GT SCH ×2 (08:15→20:49)
[2023-04-08] MEDS: AMANTADINE HCL 100 MG CAPSULE GT SCH ×2 (08:16→20:49)
[2023-04-08] MEDS: DAKINS QUARTER STRENGTH (0.125%) 480 ML BOTTLE TOP SCH (08:16)
[2023-04-08] MEDS: PANTOPRAZOLE 40 MG/PACK PACK GT SCH (08:16)
[2023-04-08] MEDS: LEVETIRACETAM SOL (5 ML) 100 MG/ML UDC GT SCH ×2 (08:16→20:49)
[2023-04-08] MEDS: THERAHONEY GEL 1.5 OZ TUBE TP SCH (08:17)
[2023-04-08] MEDS: VANCOMYCIN 1 GM in IV D5W 250 ML IV SCH ×2 (09:05→21:38)
[2023-04-08] MEDS: Z GUARD REMEDY 4 OZ OINT TP SCH ×2 (13:11→20:50)
[2023-04-08] MEDS: LEVOTHYROXINE SODIUM 50 MCG TABLET GT SCH (21:37)
[2023-04-09] VITALS (100 sets, daily range): BP systolic 73–154; BP diastolic 44–132; TEMP 97.8–100.8; O2SAT 89–100
[2023-04-09] MEDS: JEVITY 1.2 CAL 1,000 ML BOTTLE GT PRN ×2 (02:23→23:50)
[2023-04-09] MEDS: IV 1/2NS 1000 ML 1,000 ML IV SCH ×2 (04:00→23:50)
[2023-04-09] MEDS: MEROPENEM 1 G in IV NS 0.9% 100 ML IV SCH (04:10)
[2023-04-09 04:17] LABS: EOSINOPHILS # (AUTO) 0.1 K/uL (0.0-0.7); EOSINOPHILS % (AUTO) 2.2 % (0.0-6.0); LYMPHOCYTES # (AUTO) 0.4 K/uL (0.8-4.8); MEAN CORPUSCULAR HEMOGLOBIN 30 PG (26.0-33.0); MEAN CORPUSCULAR HGB CONC 34 g/dl (31.0-36.0); MEAN CORPUSCULAR VOLUME 91 fL (80-96); MONOCYTES # (AUTO) 0.2 K/uL (0.1-1.30); MONOCYTES % (AUTO) 9.4 % (2.0-12.0); NEUTROPHILS # (AUTO) 1.6 K/uL (1.8-8.9); NEUTROPHILS % (AUTO) 69.4 % (43.0-81.0); PLATELET COUNT (AUTO) 110 K/uL (150-450); RED BLOOD CELL COUNT(AUTO) 2.25 MIL/uL (4.5-6.0); RED CELL DISTRIBUTION WIDTH 14.3 % (11.5-15.0); WHITE BLOOD COUNT (AUTO) 2.3 K/uL (4.3-11.0)
[2023-04-09 04:27] LABS: CALCIUM, SERUM 8.3 mg/dL (8.5-10.1); CREATININE 0.3 mg/dL (0.6-1.3); POTASSIUM 3.5 mmol/L (3.5-5.1)
[2023-04-09 04:34] LABS: HEMATOCRIT 20 % (39-51)
[2023-04-09 04:38] LABS: HEMOGLOBIN 6.9 g/dL (13.5-17.5)
[2023-04-09 04:57] LABS: ANISOCYTOSIS 1+; EOSINOPHILS % (MANUAL) 3 % (0-4); HYPOCHROMASIA 1+; LYMPHOCYTES % (MANUAL) 22 % (16-48); MONOCYTES % (MANUAL) 5 % (0-11.0); NEUTROPHILS % (MANUAL) 70 (42-76); OVALOCYTES 1+; PLATELET ESTIMATE DECREASED
[2023-04-09] MEDS: PROSOURCE / PROSTAT (PYXIS) 30 ML UDC GT SCH ×2 (08:21→16:04)
[2023-04-09] MEDS: AMANTADINE HCL 100 MG CAPSULE GT SCH ×2 (08:22→21:12)
[2023-04-09] MEDS: VALPROIC ACID 250 MG/5 ML UDC GT SCH ×2 (08:22→21:11)
[2023-04-09] MEDS: MULTIVIT W/MINERALS 1 TAB TABLET GT SCH (08:22)
[2023-04-09] MEDS: CHOLECALCIFEROL (VITAMIN D 3) 400 UNIT TABLET GT SCH (08:22)
[2023-04-09] MEDS: LEVETIRACETAM SOL (5 ML) 100 MG/ML UDC GT SCH ×2 (08:22→21:12)
[2023-04-09] MEDS: FERROUS SULFATE UDC 300 MG/5 ML UDC GT SCH ×2 (08:22→21:12)
[2023-04-09] MEDS: PANTOPRAZOLE 40 MG/PACK PACK GT SCH (08:22)
[2023-04-09] MEDS: DAKINS QUARTER STRENGTH (0.125%) 480 ML BOTTLE TOP SCH (08:23)
[2023-04-09] MEDS: Z GUARD REMEDY 4 OZ OINT TP SCH ×2 (08:23→21:13)
[2023-04-09] MEDS: THERAHONEY GEL 1.5 OZ TUBE TP SCH (08:23)
[2023-04-09] MEDS: ARGININE/GLUTAMINE/CALCIUM BMB 1 EACH POWD.PACK GT SCH ×2 (08:24→16:04)
[2023-04-09] MEDS: DANTROLENE SODIUM 25 MG CAPSULE GT SCH ×3 (08:27→21:12)
[2023-04-09] MEDS: VANCOMYCIN 1 GM in IV D5W 250 ML IV SCH ×2 (09:21→22:07)
[2023-04-09] MEDS: METRONIDAZOLE 500MG/ NS 100ML 500 MG in PREMIX 1 EA IV SCH ×2 (10:52→20:54)
[2023-04-09] MEDS: VANCOMYCIN HCL 125 MG/2.5 ML ORAL.SUSP GT SCH ×3 (12:14→23:58)
[2023-04-09] MEDS: ACETAMINOPHEN 650 MG/20.3 ML UDC GT PRN (12:37)
[2023-04-09] MEDS: PHENYLEPHRINE 100 MG in IV NS 0.9% 240 ML IV PRN (15:04)
[2023-04-09] MEDS: LEVOTHYROXINE SODIUM 50 MCG TABLET GT SCH (21:12)
[2023-04-10] VITALS (94 sets, daily range): BP systolic 57–221; BP diastolic 45–198; TEMP 98.5–99.8; O2SAT 89–100
[2023-04-10 04:45] LABS: CALCIUM, SERUM 8.3 mg/dL (8.5-10.1); CREATININE 0.3 mg/dL (0.6-1.3); POTASSIUM 3.4 mmol/L (3.5-5.1)
[2023-04-10] MEDS: METRONIDAZOLE 500MG/ NS 100ML 500 MG in PREMIX 1 EA IV SCH ×3 (05:23→21:19)
[2023-04-10] MEDS: VANCOMYCIN HCL 125 MG/2.5 ML ORAL.SUSP GT SCH ×4 (05:23→23:52)
[2023-04-10] MEDS: IV NS 0.9% 250 ML IV PRN (06:22)
[2023-04-10] MEDS: ACETAMINOPHEN 650 MG/20.3 ML UDC GT PRN ×2 (06:25→13:32)
[2023-04-10] MEDS: CHOLECALCIFEROL (VITAMIN D 3) 400 UNIT TABLET GT SCH (08:03)
[2023-04-10] MEDS: MULTIVIT W/MINERALS 1 TAB TABLET GT SCH (08:06)
[2023-04-10] MEDS: FERROUS SULFATE UDC 300 MG/5 ML UDC GT SCH ×2 (08:06→21:19)
[2023-04-10] MEDS: VALPROIC ACID 250 MG/5 ML UDC GT SCH ×2 (08:06→21:19)
[2023-04-10] MEDS: PANTOPRAZOLE 40 MG/PACK PACK GT SCH (08:06)
[2023-04-10] MEDS: LEVETIRACETAM SOL (5 ML) 100 MG/ML UDC GT SCH ×2 (08:06→21:19)
[2023-04-10] MEDS: AMANTADINE HCL 100 MG CAPSULE GT SCH ×2 (08:06→21:19)
[2023-04-10] MEDS: DANTROLENE SODIUM 25 MG CAPSULE GT SCH ×3 (08:07→21:19)
[2023-04-10] MEDS: DAKINS QUARTER STRENGTH (0.125%) 480 ML BOTTLE TOP SCH (08:08)
[2023-04-10] MEDS: THERAHONEY GEL 1.5 OZ TUBE TP SCH (08:09)
[2023-04-10] MEDS: Z GUARD REMEDY 4 OZ OINT TP SCH ×2 (08:09→21:20)
[2023-04-10] MEDS: PROSOURCE / PROSTAT (PYXIS) 30 ML UDC GT SCH ×2 (08:18→17:58)
[2023-04-10] MEDS: ARGININE/GLUTAMINE/CALCIUM BMB 1 EACH POWD.PACK GT SCH ×2 (09:15→17:58)
[2023-04-10] MEDS: VANCOMYCIN 1 GM in IV D5W 250 ML IV SCH ×2 (10:10→21:50)
[2023-04-10 11:18] LABS: BASOPHILS % (AUTO) 0.1 % (0.0-2.0); EOSINOPHILS % (AUTO) 0.6 % (0.0-6.0); HEMATOCRIT 25 % (39-51); HEMOGLOBIN 8.5 g/dL (13.5-17.5); LYMPHOCYTES # (AUTO) 0.6 K/uL (0.8-4.8); LYMPHOCYTES % (AUTO) 28.9 % (20.0-44.0); MEAN CORPUSCULAR HEMOGLOBIN 30 PG (26.0-33.0); MEAN CORPUSCULAR HGB CONC 34 g/dl (31.0-36.0); MEAN CORPUSCULAR VOLUME 89 fL (80-96); MONOCYTES # (AUTO) 0.3 K/uL (0.1-1.30); MONOCYTES % (AUTO) 15.1 % (2.0-12.0); NEUTROPHILS # (AUTO) 1.2 K/uL (1.8-8.9); NEUTROPHILS % (AUTO) 55.3 % (43.0-81.0); PLATELET COUNT (AUTO) 139 K/uL (150-450); RED BLOOD CELL COUNT(AUTO) 2.85 MIL/uL (4.5-6.0); RED CELL DISTRIBUTION WIDTH 14.5 % (11.5-15.0); WHITE BLOOD COUNT (AUTO) 2.2 K/uL (4.3-11.0)
[2023-04-10] MEDS ORDERED: POTASSIUM CHLORIDE 20 MEQ POWDER PACKET GT ONE (11:30)
[2023-04-10] MEDS: PHENYLEPHRINE 100 MG in IV NS 0.9% 240 ML IV PRN (18:04)
[2023-04-10] MEDS: IV 1/2NS 1000 ML 1,000 ML IV SCH (19:19)
[2023-04-10] MEDS: JEVITY 1.2 CAL 1,000 ML BOTTLE GT PRN (19:22)
[2023-04-10] MEDS: LEVOTHYROXINE SODIUM 50 MCG TABLET GT SCH (21:19)
[2023-04-11] VITALS (104 sets, daily range): BP systolic 79–165; BP diastolic 37–129; TEMP 98.5–99.7; O2SAT 90–100
[2023-04-11] MEDS: METRONIDAZOLE 500MG/ NS 100ML 500 MG in PREMIX 1 EA IV SCH ×3 (04:21→21:00)
[2023-04-11 04:56] LABS: CALCIUM, SERUM 8.3 mg/dL (8.5-10.1); CREATININE 0.2 mg/dL (0.6-1.3); POTASSIUM 3.9 mmol/L (3.5-5.1)
[2023-04-11] MEDS: VANCOMYCIN HCL 125 MG/2.5 ML ORAL.SUSP GT SCH ×4 (05:15→23:45)
[2023-04-11] MEDS: Z GUARD REMEDY 4 OZ OINT TP SCH ×2 (09:25→21:17)
[2023-04-11] MEDS: DAKINS QUARTER STRENGTH (0.125%) 480 ML BOTTLE TOP SCH (09:25)
[2023-04-11] MEDS: THERAHONEY GEL 1.5 OZ TUBE TP SCH (09:25)
[2023-04-11] MEDS: FERROUS SULFATE UDC 300 MG/5 ML UDC GT SCH ×2 (09:31→20:33)
[2023-04-11] MEDS: PROSOURCE / PROSTAT (PYXIS) 30 ML UDC GT SCH ×2 (09:31→18:00)
[2023-04-11] MEDS: ARGININE/GLUTAMINE/CALCIUM BMB 1 EACH POWD.PACK GT SCH ×2 (09:31→18:00)
[2023-04-11] MEDS: VALPROIC ACID 250 MG/5 ML UDC GT SCH ×2 (09:31→20:33)
[2023-04-11] MEDS: MULTIVIT W/MINERALS 1 TAB TABLET GT SCH (09:32)
[2023-04-11] MEDS: LEVETIRACETAM SOL (5 ML) 100 MG/ML UDC GT SCH ×2 (09:32→20:33)
[2023-04-11] MEDS: AMANTADINE HCL 100 MG CAPSULE GT SCH ×2 (09:32→20:33)
[2023-04-11] MEDS: CHOLECALCIFEROL (VITAMIN D 3) 400 UNIT TABLET GT SCH (09:32)
[2023-04-11] MEDS: DANTROLENE SODIUM 25 MG CAPSULE GT SCH ×3 (09:32→20:38)
[2023-04-11] MEDS: PANTOPRAZOLE 40 MG/PACK PACK GT SCH (09:32)
[2023-04-11] MEDS: VANCOMYCIN 1 GM in IV D5W 250 ML IV SCH ×2 (10:36→22:00)
[2023-04-11] MEDS: IV 1/2NS 1000 ML 1,000 ML IV PRN (12:22)
[2023-04-11] MEDS: JEVITY 1.2 CAL 1,000 ML BOTTLE GT PRN (18:00)
[2023-04-11] MEDS: PHENYLEPHRINE 100 MG in IV NS 0.9% 240 ML IV PRN (18:13)
[2023-04-11] MEDS: LEVOTHYROXINE SODIUM 50 MCG TABLET GT SCH (21:01)
[2023-04-12] VITALS (78 sets, daily range): BP systolic 69–181; BP diastolic 40–111; TEMP 97.4–99.3; O2SAT 84–100
[2023-04-12] MEDS: METRONIDAZOLE 500MG/ NS 100ML 500 MG in PREMIX 1 EA IV SCH ×3 (04:24→21:54)
[2023-04-12 04:47] LABS: CALCIUM, SERUM 10.4 mg/dL (8.5-10.1); CREATININE 0.7 mg/dL (0.6-1.3); POTASSIUM 3.8 mmol/L (3.5-5.1)
[2023-04-12] MEDS: VANCOMYCIN HCL 125 MG/2.5 ML ORAL.SUSP GT SCH ×4 (05:28→23:53)
[2023-04-12 08:27] LABS: BASOPHILS % (AUTO) 0.2 % (0.0-2.0); HEMATOCRIT 36 % (39-51); HEMOGLOBIN 11.5 g/dL (13.5-17.5); LYMPHOCYTES # (AUTO) 0.5 K/uL (0.8-4.8); MEAN CORPUSCULAR HEMOGLOBIN 29 PG (26.0-33.0); MEAN CORPUSCULAR HGB CONC 32 g/dl (31.0-36.0); MEAN CORPUSCULAR VOLUME 92 fL (80-96); MONOCYTES # (AUTO) 0.9 K/uL (0.1-1.30); MONOCYTES % (AUTO) 5.3 % (2.0-12.0); NEUTROPHILS # (AUTO) 15.4 K/uL (1.8-8.9); NEUTROPHILS % (AUTO) 91.5 % (43.0-81.0); PLATELET COUNT (AUTO) 187 K/uL (150-450); RED BLOOD CELL COUNT(AUTO) 3.92 MIL/uL (4.5-6.0); WHITE BLOOD COUNT (AUTO) 16.9 K/uL (4.3-11.0)
[2023-04-12] MEDS: LEVETIRACETAM SOL (5 ML) 100 MG/ML UDC GT SCH ×2 (09:29→21:53)
[2023-04-12] MEDS: VALPROIC ACID 250 MG/5 ML UDC GT SCH ×2 (09:29→21:53)
[2023-04-12] MEDS: PANTOPRAZOLE 40 MG/PACK PACK GT SCH (09:29)
[2023-04-12] MEDS: DANTROLENE SODIUM 25 MG CAPSULE GT SCH ×3 (09:30→21:53)
[2023-04-12] MEDS: CHOLECALCIFEROL (VITAMIN D 3) 400 UNIT TABLET GT SCH (09:30)
[2023-04-12] MEDS: FERROUS SULFATE UDC 300 MG/5 ML UDC GT SCH ×2 (09:30→21:53)
[2023-04-12] MEDS: MULTIVIT W/MINERALS 1 TAB TABLET GT SCH (09:30)
[2023-04-12] MEDS: Z GUARD REMEDY 4 OZ OINT TP SCH ×2 (09:33→21:00)
[2023-04-12] MEDS: AMANTADINE HCL 100 MG CAPSULE GT SCH ×2 (09:33→21:53)
[2023-04-12] MEDS: DAKINS QUARTER STRENGTH (0.125%) 480 ML BOTTLE TOP SCH (09:33)
[2023-04-12] MEDS: THERAHONEY GEL 1.5 OZ TUBE TP SCH (09:34)
[2023-04-12] MEDS: PROSOURCE / PROSTAT (PYXIS) 30 ML UDC GT SCH ×2 (09:34→17:01)
[2023-04-12] MEDS: ARGININE/GLUTAMINE/CALCIUM BMB 1 EACH POWD.PACK GT SCH ×2 (09:37→17:01)
[2023-04-12] MEDS ORDERED: IV NS 0.9% 500 ML IV ONE ×2 (10:00)
[2023-04-12] MEDS: VANCOMYCIN 1 GM in IV D5W 250 ML IV SCH ×2 (10:45→22:32)
[2023-04-12] MEDS ORDERED: IV NS 0.9% 500 ML IV PRN ×2 (14:00→20:00)
[2023-04-12] MEDS: JEVITY 1.2 CAL 1,000 ML BOTTLE GT PRN (18:16)
[2023-04-12] MEDS: IV 1/2NS 1000 ML 1,000 ML IV PRN (18:16)
[2023-04-12] MEDS: LEVOTHYROXINE SODIUM 50 MCG TABLET GT SCH (21:53)
[2023-04-13] VITALS (24 sets, daily range): BP systolic 108–164; BP diastolic 54–98; TEMP 96.6–98.3; O2SAT 97–100
[2023-04-13 04:11] LABS: BASOPHILS % (AUTO) 0.2 % (0.0-2.0); EOSINOPHILS % (AUTO) 0.6 % (0.0-6.0); HEMATOCRIT 22 % (39-51); HEMOGLOBIN 7.2 g/dL (13.5-17.5); LYMPHOCYTES # (AUTO) 0.8 K/uL (0.8-4.8); LYMPHOCYTES % (AUTO) 19.6 % (20.0-44.0); MEAN CORPUSCULAR HEMOGLOBIN 30 PG (26.0-33.0); MEAN CORPUSCULAR HGB CONC 33 g/dl (31.0-36.0); MEAN CORPUSCULAR VOLUME 91 fL (80-96); MONOCYTES # (AUTO) 0.3 K/uL (0.1-1.30); NEUTROPHILS # (AUTO) 2.8 K/uL (1.8-8.9); NEUTROPHILS % (AUTO) 71.6 % (43.0-81.0); PLATELET COUNT (AUTO) 173 K/uL (150-450); RED BLOOD CELL COUNT(AUTO) 2.43 MIL/uL (4.5-6.0); RED CELL DISTRIBUTION WIDTH 14.9 % (11.5-15.0); WHITE BLOOD COUNT (AUTO) 3.9 K/uL (4.3-11.0)
[2023-04-13] MEDS: METRONIDAZOLE 500MG/ NS 100ML 500 MG in PREMIX 1 EA IV SCH ×3 (04:15→20:52)
[2023-04-13 04:31] LABS: CALCIUM, SERUM 8.1 mg/dL (8.5-10.1); CREATININE 0.2 mg/dL (0.6-1.3); PHOSPHORUS 2.9 mg/dL (2.5-4.9)
[2023-04-13] MEDS: IV 1/2NS 1000 ML 1,000 ML IV PRN ×2 (05:16→16:16)
[2023-04-13] MEDS: VANCOMYCIN HCL 125 MG/2.5 ML ORAL.SUSP GT SCH ×4 (05:29→23:04)
[2023-04-13] MEDS ORDERED: POTASSIUM CHLORIDE 20 MEQ POWDER PACKET NG SCH (08:00)
[2023-04-13] MEDS: ARGININE/GLUTAMINE/CALCIUM BMB 1 EACH POWD.PACK GT SCH ×2 (08:24→17:22)
[2023-04-13] MEDS: PROSOURCE / PROSTAT (PYXIS) 30 ML UDC GT SCH ×2 (08:25→17:22)
[2023-04-13] MEDS: VALPROIC ACID 250 MG/5 ML UDC GT SCH ×2 (08:26→20:50)
[2023-04-13] MEDS: JEVITY 1.2 CAL 1,000 ML BOTTLE GT PRN (08:26)
[2023-04-13] MEDS: PANTOPRAZOLE 40 MG/PACK PACK GT SCH (08:26)
[2023-04-13] MEDS: FERROUS SULFATE UDC 300 MG/5 ML UDC GT SCH ×2 (08:27→20:49)
[2023-04-13] MEDS: DANTROLENE SODIUM 25 MG CAPSULE GT SCH ×3 (08:27→20:50)
[2023-04-13] MEDS: CHOLECALCIFEROL (VITAMIN D 3) 400 UNIT TABLET GT SCH (08:27)
[2023-04-13] MEDS: AMANTADINE HCL 100 MG CAPSULE GT SCH ×2 (08:27→20:50)
[2023-04-13] MEDS: LEVETIRACETAM SOL (5 ML) 100 MG/ML UDC GT SCH ×2 (08:27→20:49)
[2023-04-13] MEDS: DAKINS QUARTER STRENGTH (0.125%) 480 ML BOTTLE TOP SCH (08:28)
[2023-04-13] MEDS: Z GUARD REMEDY 4 OZ OINT TP SCH ×2 (08:28→20:51)
[2023-04-13] MEDS: THERAHONEY GEL 1.5 OZ TUBE TP SCH (08:28)
[2023-04-13] MEDS: MULTIVIT W/MINERALS 1 TAB TABLET GT SCH (08:30)
[2023-04-13] MEDS: VANCOMYCIN 1 GM in IV D5W 250 ML IV SCH ×2 (11:11→22:09)
[2023-04-13] MEDS: METOCLOPRAMIDE HCL 10 MG/2 ML VIAL IV SCH ×3 (12:41→23:04)
[2023-04-13] MEDS: LEVOTHYROXINE SODIUM 50 MCG TABLET GT SCH (21:06)
[2023-04-14] VITALS (17 sets, daily range): BP systolic 101–162; BP diastolic 52–96; TEMP 97.5–98.8; O2SAT 90–100
[2023-04-14] MEDS: IV 1/2NS 1000 ML 1,000 ML IV PRN (02:27)
[2023-04-14 03:28] LABS: BASOPHILS % (AUTO) 0.1 % (0.0-2.0); EOSINOPHILS % (AUTO) 0.4 % (0.0-6.0); HEMATOCRIT 23 % (39-51); HEMOGLOBIN 7.7 g/dL (13.5-17.5); LYMPHOCYTES # (AUTO) 0.6 K/uL (0.8-4.8); LYMPHOCYTES % (AUTO) 16.3 % (20.0-44.0); MEAN CORPUSCULAR HEMOGLOBIN 30 PG (26.0-33.0); MEAN CORPUSCULAR HGB CONC 33 g/dl (31.0-36.0); MEAN CORPUSCULAR VOLUME 90 fL (80-96); MONOCYTES # (AUTO) 0.3 K/uL (0.1-1.30); MONOCYTES % (AUTO) 8.6 % (2.0-12.0); NEUTROPHILS # (AUTO) 2.7 K/uL (1.8-8.9); NEUTROPHILS % (AUTO) 74.6 % (43.0-81.0); PLATELET COUNT (AUTO) 193 K/uL (150-450); RED BLOOD CELL COUNT(AUTO) 2.58 MIL/uL (4.5-6.0); WHITE BLOOD COUNT (AUTO) 3.6 K/uL (4.3-11.0)
[2023-04-14 03:45] LABS: CALCIUM, SERUM 8.1 mg/dL (8.5-10.1); CREATININE 0.2 mg/dL (0.6-1.3); POTASSIUM 3.7 mmol/L (3.5-5.1)
[2023-04-14] MEDS: METRONIDAZOLE 500MG/ NS 100ML 500 MG in PREMIX 1 EA IV SCH ×2 (04:21→12:09)
[2023-04-14] MEDS: JEVITY 1.2 CAL 1,000 ML BOTTLE GT PRN (04:21)
[2023-04-14] MEDS: METOCLOPRAMIDE HCL 10 MG/2 ML VIAL IV SCH ×4 (04:21→23:11)
[2023-04-14] MEDS: VANCOMYCIN HCL 125 MG/2.5 ML ORAL.SUSP GT SCH ×4 (05:14→23:16)
[2023-04-14] MEDS: VALPROIC ACID 250 MG/5 ML UDC GT SCH ×2 (08:46→21:21)
[2023-04-14] MEDS: LEVETIRACETAM SOL (5 ML) 100 MG/ML UDC GT SCH ×2 (08:46→21:21)
[2023-04-14] MEDS: MULTIVIT W/MINERALS 1 TAB TABLET GT SCH (08:46)
[2023-04-14] MEDS: FERROUS SULFATE UDC 300 MG/5 ML UDC GT SCH ×2 (08:47→21:21)
[2023-04-14] MEDS: AMANTADINE HCL 100 MG CAPSULE GT SCH ×2 (08:47→21:21)
[2023-04-14] MEDS: PANTOPRAZOLE 40 MG/PACK PACK GT SCH (08:47)
[2023-04-14] MEDS: PROSOURCE / PROSTAT (PYXIS) 30 ML UDC GT SCH ×2 (08:47→17:05)
[2023-04-14] MEDS: CHOLECALCIFEROL (VITAMIN D 3) 400 UNIT TABLET GT SCH (08:47)
[2023-04-14] MEDS: DANTROLENE SODIUM 25 MG CAPSULE GT SCH ×3 (08:47→21:21)
[2023-04-14] MEDS: THERAHONEY GEL 1.5 OZ TUBE TP SCH (08:48)
[2023-04-14] MEDS: ARGININE/GLUTAMINE/CALCIUM BMB 1 EACH POWD.PACK GT SCH ×2 (08:48→17:05)
[2023-04-14] MEDS: Z GUARD REMEDY 4 OZ OINT TP SCH ×2 (08:48→21:22)
[2023-04-14] MEDS: DAKINS QUARTER STRENGTH (0.125%) 480 ML BOTTLE TOP SCH (08:48)
[2023-04-14] MEDS: VANCOMYCIN 1 GM in IV D5W 250 ML IV SCH ×2 (10:39→21:20)
[2023-04-14] MEDS: LEVOTHYROXINE SODIUM 50 MCG TABLET GT SCH (21:21)
[2023-04-14] MEDS: IV NS 0.9% 250 ML IV PRN (21:33)
[2023-04-15] VITALS: BP 100/57; TEMP 98.1; O2SAT 95
[2023-04-15] MEDS: JEVITY 1.2 CAL 1,000 ML BOTTLE GT PRN ×2 (01:43→19:37)
[2023-04-15 04:00] VITALS: BP 121/74; TEMP 98; O2SAT 93
[2023-04-15] MEDS: METOCLOPRAMIDE HCL 10 MG/2 ML VIAL IV SCH ×4 (05:28→22:43)
[2023-04-15] MEDS: VANCOMYCIN HCL 125 MG/2.5 ML ORAL.SUSP GT SCH ×4 (05:29→23:12)
[2023-04-15 07:18] LABS: BASOPHILS % (AUTO) 0.1 % (0.0-2.0); EOSINOPHILS % (AUTO) 0.1 % (0.0-6.0); HEMATOCRIT 26 % (39-51); HEMOGLOBIN 8.6 g/dL (13.5-17.5); LYMPHOCYTES # (AUTO) 0.9 K/uL (0.8-4.8); LYMPHOCYTES % (AUTO) 11.8 % (20.0-44.0); MEAN CORPUSCULAR HEMOGLOBIN 30 PG (26.0-33.0); MEAN CORPUSCULAR HGB CONC 33 g/dl (31.0-36.0); MEAN CORPUSCULAR VOLUME 91 fL (80-96); MONOCYTES # (AUTO) 0.3 K/uL (0.1-1.30); MONOCYTES % (AUTO) 4.2 % (2.0-12.0); NEUTROPHILS # (AUTO) 6.7 K/uL (1.8-8.9); NEUTROPHILS % (AUTO) 83.8 % (43.0-81.0); PLATELET COUNT (AUTO) 220 K/uL (150-450); RED BLOOD CELL COUNT(AUTO) 2.89 MIL/uL (4.5-6.0); RED CELL DISTRIBUTION WIDTH 15.2 % (11.5-15.0)
[2023-04-15 07:23] LABS: CALCIUM, SERUM 8.3 mg/dL (8.5-10.1); CREATININE 0.3 mg/dL (0.6-1.3); MAGNESIUM 2.1 mg/dL (1.8-2.4); PHOSPHORUS 3.5 mg/dL (2.5-4.9); POTASSIUM 3.7 mmol/L (3.5-5.1)
[2023-04-15 08:00] VITALS: BP 99/62; TEMP 98.1; O2SAT 93
[2023-04-15] MEDS: CHOLECALCIFEROL (VITAMIN D 3) 400 UNIT TABLET GT SCH (08:33)
[2023-04-15] MEDS: LEVETIRACETAM SOL (5 ML) 100 MG/ML UDC GT SCH ×2 (08:33→20:57)
[2023-04-15] MEDS: FERROUS SULFATE UDC 300 MG/5 ML UDC GT SCH ×2 (08:33→20:57)
[2023-04-15] MEDS: DANTROLENE SODIUM 25 MG CAPSULE GT SCH ×3 (08:33→20:57)
[2023-04-15] MEDS: MULTIVIT W/MINERALS 1 TAB TABLET GT SCH (08:33)
[2023-04-15] MEDS: PANTOPRAZOLE 40 MG/PACK PACK GT SCH (08:33)
[2023-04-15] MEDS: AMANTADINE HCL 100 MG CAPSULE GT SCH ×2 (08:33→20:57)
[2023-04-15] MEDS: THERAHONEY GEL 1.5 OZ TUBE TP SCH (08:34)
[2023-04-15] MEDS: PROSOURCE / PROSTAT (PYXIS) 30 ML UDC GT SCH ×2 (08:34→17:09)
[2023-04-15] MEDS: Z GUARD REMEDY 4 OZ OINT TP SCH ×2 (08:35→20:58)
[2023-04-15] MEDS: DAKINS QUARTER STRENGTH (0.125%) 480 ML BOTTLE TOP SCH (08:35)
[2023-04-15] MEDS: VALPROIC ACID 250 MG/5 ML UDC GT SCH ×2 (08:38→20:57)
[2023-04-15] MEDS: ARGININE/GLUTAMINE/CALCIUM BMB 1 EACH POWD.PACK GT SCH ×2 (08:38→17:09)
[2023-04-15] MEDS: VANCOMYCIN 1 GM in IV D5W 250 ML IV SCH ×2 (10:31→22:43)
[2023-04-15 12:00] VITALS: BP 102/67; TEMP 98.6; O2SAT 93
[2023-04-15 16:00] VITALS: BP 98/69; TEMP 98.2; O2SAT 95
[2023-04-15 20:00] VITALS: BP 102/66; TEMP 98.1; O2SAT 99
[2023-04-15] MEDS: LEVOTHYROXINE SODIUM 50 MCG TABLET GT SCH (21:11)
[2023-04-16] VITALS: BP 100/74; TEMP 98.5; O2SAT 99
[2023-04-16 04:00] VITALS: BP 103/71; TEMP 97.8; O2SAT 97
[2023-04-16] MEDS: METOCLOPRAMIDE HCL 10 MG/2 ML VIAL IV SCH ×2 (05:21→11:56)
[2023-04-16] MEDS: VANCOMYCIN HCL 125 MG/2.5 ML ORAL.SUSP GT SCH ×3 (05:21→17:49)
[2023-04-16 08:00] VITALS: BP 131/89; TEMP 97.9; O2SAT 100
[2023-04-16] MEDS: LEVETIRACETAM SOL (5 ML) 100 MG/ML UDC GT SCH ×2 (10:32→20:41)
[2023-04-16] MEDS: PROSOURCE / PROSTAT (PYXIS) 30 ML UDC GT SCH ×2 (10:32→16:35)
[2023-04-16] MEDS: PANTOPRAZOLE 40 MG/PACK PACK GT SCH (10:32)
[2023-04-16] MEDS: DANTROLENE SODIUM 25 MG CAPSULE GT SCH ×3 (10:32→20:41)
[2023-04-16] MEDS: VALPROIC ACID 250 MG/5 ML UDC GT SCH ×2 (10:32→20:41)
[2023-04-16] MEDS: Z GUARD REMEDY 4 OZ OINT TP SCH ×2 (10:33→20:54)
[2023-04-16] MEDS: ARGININE/GLUTAMINE/CALCIUM BMB 1 EACH POWD.PACK GT SCH ×2 (10:33→16:35)
[2023-04-16] MEDS: THERAHONEY GEL 1.5 OZ TUBE TP SCH (10:33)
[2023-04-16] MEDS: VANCOMYCIN 1 GM in IV D5W 250 ML IV SCH ×2 (10:33→21:48)
[2023-04-16] MEDS: MULTIVIT W/MINERALS 1 TAB TABLET GT SCH (10:34)
[2023-04-16] MEDS: DAKINS QUARTER STRENGTH (0.125%) 480 ML BOTTLE TOP SCH (10:34)
[2023-04-16] MEDS: AMANTADINE HCL 100 MG CAPSULE GT SCH ×2 (10:34→20:41)
[2023-04-16] MEDS: CHOLECALCIFEROL (VITAMIN D 3) 400 UNIT TABLET GT SCH (10:34)
[2023-04-16] MEDS: FERROUS SULFATE UDC 300 MG/5 ML UDC GT SCH ×2 (10:35→20:41)
[2023-04-16 12:00] VITALS: BP 98/73; TEMP 98.2; O2SAT 100
[2023-04-16 16:00] VITALS: BP 99/67; TEMP 98.8; O2SAT 98
[2023-04-16] MEDS: JEVITY 1.2 CAL 1,000 ML BOTTLE GT PRN (16:35)
[2023-04-16] MEDS: METOCLOPRAMIDE HCL 10 MG/10 ML UDC GT SCH ×2 (17:49→20:41)
[2023-04-16 20:00] VITALS: BP 118/74; TEMP 98.8; O2SAT 100
[2023-04-16] MEDS: LEVOTHYROXINE SODIUM 50 MCG TABLET GT SCH (21:48)
[2023-04-17] VITALS: BP 90/64; TEMP 99; O2SAT 99
[2023-04-17] MEDS: VANCOMYCIN HCL 125 MG/2.5 ML ORAL.SUSP GT SCH ×5 (00:03→23:23)
[2023-04-17 04:00] VITALS: BP 99/70; TEMP 98.8; O2SAT 98
[2023-04-17] MEDS: JEVITY 1.2 CAL 1,000 ML BOTTLE GT PRN ×2 (05:04→21:53)
[2023-04-17 07:51] LABS: EOSINOPHILS % (AUTO) 0.3 % (0.0-6.0); HEMATOCRIT 28 % (39-51); HEMOGLOBIN 8.8 g/dL (13.5-17.5); LYMPHOCYTES # (AUTO) 0.8 K/uL (0.8-4.8); LYMPHOCYTES % (AUTO) 11.7 % (20.0-44.0); MEAN CORPUSCULAR HEMOGLOBIN 30 PG (26.0-33.0); MEAN CORPUSCULAR HGB CONC 32 g/dl (31.0-36.0); MEAN CORPUSCULAR VOLUME 93 fL (80-96); MONOCYTES # (AUTO) 0.4 K/uL (0.1-1.30); MONOCYTES % (AUTO) 5.4 % (2.0-12.0); NEUTROPHILS # (AUTO) 5.9 K/uL (1.8-8.9); NEUTROPHILS % (AUTO) 82.6 % (43.0-81.0); PLATELET COUNT (AUTO) 259 K/uL (150-450); RED BLOOD CELL COUNT(AUTO) 2.98 MIL/uL (4.5-6.0); RED CELL DISTRIBUTION WIDTH 16.3 % (11.5-15.0); WHITE BLOOD COUNT (AUTO) 7.2 K/uL (4.3-11.0)
[2023-04-17 08:00] VITALS: BP 92/62; TEMP 98.7; O2SAT 92
[2023-04-17 08:12] LABS: CALCIUM, SERUM 8.6 mg/dL (8.5-10.1); CREATININE 0.3 mg/dL (0.6-1.3); MAGNESIUM 2.3 mg/dL (1.8-2.4)
[2023-04-17] MEDS: VALPROIC ACID 250 MG/5 ML UDC GT SCH ×2 (08:49→21:31)
[2023-04-17] MEDS: PANTOPRAZOLE 40 MG/PACK PACK GT SCH (08:50)
[2023-04-17] MEDS: LEVETIRACETAM SOL (5 ML) 100 MG/ML UDC GT SCH ×2 (08:50→21:32)
[2023-04-17] MEDS: METOCLOPRAMIDE HCL 10 MG/10 ML UDC GT SCH ×2 (08:50→21:32)
[2023-04-17] MEDS: MULTIVIT W/MINERALS 1 TAB TABLET GT SCH (08:50)
[2023-04-17] MEDS: AMANTADINE HCL 100 MG CAPSULE GT SCH ×2 (08:50→21:31)
[2023-04-17] MEDS: FERROUS SULFATE UDC 300 MG/5 ML UDC GT SCH ×2 (08:51→21:32)
[2023-04-17] MEDS: DANTROLENE SODIUM 25 MG CAPSULE GT SCH ×3 (08:51→21:31)
[2023-04-17] MEDS: ARGININE/GLUTAMINE/CALCIUM BMB 1 EACH POWD.PACK GT SCH ×2 (08:52→17:06)
[2023-04-17] MEDS: PROSOURCE / PROSTAT (PYXIS) 30 ML UDC GT SCH ×2 (08:52→17:06)
[2023-04-17] MEDS: Z GUARD REMEDY 4 OZ OINT TP SCH ×2 (08:53→21:39)
[2023-04-17] MEDS: DAKINS QUARTER STRENGTH (0.125%) 480 ML BOTTLE TOP SCH (08:53)
[2023-04-17] MEDS: CHOLECALCIFEROL (VITAMIN D 3) 400 UNIT TABLET GT SCH (08:54)
[2023-04-17] MEDS: THERAHONEY GEL 1.5 OZ TUBE TP SCH (08:54)
[2023-04-17] MEDS: VANCOMYCIN 1 GM in IV D5W 250 ML IV SCH (10:23)
[2023-04-17 12:00] VITALS: BP 92/62; TEMP 98.6; O2SAT 94
[2023-04-17 16:00] VITALS: BP 99/76; TEMP 98.4; O2SAT 94
[2023-04-17 20:00] VITALS: BP 103/65; TEMP 98.8; O2SAT 98
[2023-04-17] MEDS: LEVOTHYROXINE SODIUM 50 MCG TABLET GT SCH (21:32)
[2023-04-18] VITALS: BP 103/59; TEMP 98.8; O2SAT 97
[2023-04-18 04:00] VITALS: BP 146/66; TEMP 98.9; O2SAT 100
[2023-04-18] MEDS: VANCOMYCIN HCL 125 MG/2.5 ML ORAL.SUSP GT SCH ×4 (05:04→23:41)
[2023-04-18 08:00] VITALS: BP 164/87; TEMP 100.5; O2SAT 100
[2023-04-18 08:15] LABS: CALCIUM, SERUM 8.8 mg/dL (8.5-10.1); CREATININE 0.3 mg/dL (0.6-1.3); POTASSIUM 3.9 mmol/L (3.5-5.1)
[2023-04-18] MEDS: ACETAMINOPHEN 650 MG/20.3 ML UDC GT PRN (09:03)
[2023-04-18] MEDS: AMANTADINE HCL 100 MG CAPSULE GT SCH ×2 (09:03→20:55)
[2023-04-18] MEDS: METOCLOPRAMIDE HCL 10 MG/10 ML UDC GT SCH ×2 (09:03→20:56)
[2023-04-18] MEDS: PROSOURCE / PROSTAT (PYXIS) 30 ML UDC GT SCH (09:03)
[2023-04-18] MEDS: FERROUS SULFATE UDC 300 MG/5 ML UDC GT SCH ×2 (09:03→20:57)
[2023-04-18] MEDS: ARGININE/GLUTAMINE/CALCIUM BMB 1 EACH POWD.PACK GT SCH ×2 (09:03→16:59)
[2023-04-18] MEDS: PANTOPRAZOLE 40 MG/PACK PACK GT SCH (09:04)
[2023-04-18] MEDS: LEVETIRACETAM SOL (5 ML) 100 MG/ML UDC GT SCH ×3 (09:04→20:58)
[2023-04-18] MEDS: VALPROIC ACID 250 MG/5 ML UDC GT SCH ×2 (09:04→20:59)
[2023-04-18] MEDS: CHOLECALCIFEROL (VITAMIN D 3) 400 UNIT TABLET GT SCH (09:04)
[2023-04-18] MEDS: Z GUARD REMEDY 4 OZ OINT TP SCH ×2 (09:04→21:00)
[2023-04-18] MEDS: DAKINS QUARTER STRENGTH (0.125%) 480 ML BOTTLE TOP SCH (09:04)
[2023-04-18] MEDS: DANTROLENE SODIUM 25 MG CAPSULE GT SCH ×3 (09:04→20:55)
[2023-04-18] MEDS: MULTIVIT W/MINERALS 1 TAB TABLET GT SCH (09:04)
[2023-04-18] MEDS: THERAHONEY GEL 1.5 OZ TUBE TP SCH (09:05)
[2023-04-18 12:00] VITALS: BP 153/80; TEMP 100.8; O2SAT 100
[2023-04-18 14:11] LABS: APPEARANCE,URINE SLIGHTLY CLOUDY (CLEAR); BILIRUBIN,URINE NEGATIVE (NEGATIVE); BLOOD, URINE 3+ Ery/uL (NEGATIVE); COLOR,URINE YELLOW (YELLOW); KETONES,URINE TRACE mg/dL (NEGATIVE); LEUKOCYTE ESTERASE ,URINE 3+ (NEGATIVE); NITRITE, URINE NEGATIVE (NEGATIVE); PH,URINE 7.5 (5.0-8.0); PROTEIN,URINE TRACE mg/dl (NEGATIVE); UGLUCOSE NEGATIVE (NEGATIVE); UROBILINOGEN,URINE 0.2 EU/dL (0.2)
[2023-04-18 15:52] LABS: ADD URINE CULTURE YES; BACTERIA,URINE Rare /HPF (None Seen); RBC,URINE 81-100 /HPF (0-2); SQUAMOUS EPITHELIAL CELL,UR Moderate /HPF (None Seen); WBC,URINE 51-80 /HPF (0-3)
[2023-04-18 15:53] LABS: URINE AMORPHOUS PHOSPHATES Moderate /HPF (None Seen)
[2023-04-18 16:00] VITALS: BP 117/66; TEMP 99.8; O2SAT 100
[2023-04-18] MEDS: VITAL AF 1.2 1,000 ML BOTTLE GT PRN (17:00)
[2023-04-18 20:00] VITALS: BP 109/76; TEMP 98.2; O2SAT 100
[2023-04-18] MEDS: LEVOTHYROXINE SODIUM 50 MCG TABLET GT SCH (20:52)
[2023-04-19] VITALS: BP 103/71; TEMP 98.2; O2SAT 100
[2023-04-19] MEDS: VANCOMYCIN HCL 125 MG/2.5 ML ORAL.SUSP GT SCH ×3 (04:56→17:59)
[2023-04-19 06:00] VITALS: BP 103/71; TEMP 98.2; O2SAT 100
[2023-04-19 08:00] VITALS: BP 116/60; TEMP 99.5; O2SAT 96
[2023-04-19 08:26] LABS: BASOPHILS % (AUTO) 0.1 % (0.0-2.0); EOSINOPHILS % (AUTO) 0.1 % (0.0-6.0); HEMATOCRIT 28 % (39-51); HEMOGLOBIN 8.8 g/dL (13.5-17.5); LYMPHOCYTES # (AUTO) 0.9 K/uL (0.8-4.8); LYMPHOCYTES % (AUTO) 7.9 % (20.0-44.0); MEAN CORPUSCULAR HEMOGLOBIN 30 PG (26.0-33.0); MEAN CORPUSCULAR HGB CONC 32 g/dl (31.0-36.0); MEAN CORPUSCULAR VOLUME 94 fL (80-96); MONOCYTES # (AUTO) 0.6 K/uL (0.1-1.30); MONOCYTES % (AUTO) 4.9 % (2.0-12.0); NEUTROPHILS # (AUTO) 10.3 K/uL (1.8-8.9); PLATELET COUNT (AUTO) 275 K/uL (150-450); RED BLOOD CELL COUNT(AUTO) 2.93 MIL/uL (4.5-6.0); RED CELL DISTRIBUTION WIDTH 16.7 % (11.5-15.0); WHITE BLOOD COUNT (AUTO) 11.8 K/uL (4.3-11.0)
[2023-04-19 08:40] LABS: CREATININE 0.3 mg/dL (0.6-1.3); MAGNESIUM 2.3 mg/dL (1.8-2.4); PHOSPHORUS 4.4 mg/dL (2.5-4.9); POTASSIUM 4.1 mmol/L (3.5-5.1)
[2023-04-19] MEDS: FERROUS SULFATE UDC 300 MG/5 ML UDC GT SCH ×2 (08:51→21:41)
[2023-04-19] MEDS: PANTOPRAZOLE 40 MG/PACK PACK GT SCH (08:52)
[2023-04-19] MEDS: VALPROIC ACID 250 MG/5 ML UDC GT SCH ×2 (08:52→21:48)
[2023-04-19] MEDS: METOCLOPRAMIDE HCL 10 MG/10 ML UDC GT SCH (08:52)
[2023-04-19] MEDS: MULTIVIT W/MINERALS 1 TAB TABLET GT SCH (08:52)
[2023-04-19] MEDS: DANTROLENE SODIUM 25 MG CAPSULE GT SCH ×3 (08:53→21:39)
[2023-04-19] MEDS: DAKINS QUARTER STRENGTH (0.125%) 480 ML BOTTLE TOP SCH (08:53)
[2023-04-19] MEDS: CHOLECALCIFEROL (VITAMIN D 3) 400 UNIT TABLET GT SCH (08:53)
[2023-04-19] MEDS: AMANTADINE HCL 100 MG CAPSULE GT SCH ×2 (08:53→21:39)
[2023-04-19] MEDS: Z GUARD REMEDY 4 OZ OINT TP SCH ×2 (08:54→21:40)
[2023-04-19] MEDS: THERAHONEY GEL 1.5 OZ TUBE TP SCH (08:54)
[2023-04-19] MEDS: ARGININE/GLUTAMINE/CALCIUM BMB 1 EACH POWD.PACK GT SCH ×2 (09:48→17:45)
[2023-04-19 12:00] VITALS: BP 124/104; TEMP 99.7; O2SAT 96
[2023-04-19] MEDS: METOCLOPRAMIDE HCL 10 MG/2 ML VIAL IV SCH ×2 (12:57→18:00)
[2023-04-19 13:50] LABS: ABG PCO2 40.9 mmHg (35.0-45.0); ABG PH 7.482 (7.350-7.450); ABG TOTAL HEMOGLOBIN 10.6 G/dL (13.5-18.0); AaDO2 139.1 mmHg; COHb 0.6 % (0.5-1.5); MetHb 0.2 % (0.0-1.5); O2Hb 96.2 % (94.0-97.0); SITE, ABG Right Radial; VENT MODE, BG AC 18 400 40%
[2023-04-19 16:00] VITALS: BP 95/58; TEMP 99.3; O2SAT 93
[2023-04-19 20:00] VITALS: BP 87/50; TEMP 99.7; O2SAT 96
[2023-04-19] MEDS: LEVETIRACETAM SOL (5 ML) 100 MG/ML UDC GT SCH (21:40)
[2023-04-19] MEDS: LEVOTHYROXINE SODIUM 50 MCG TABLET GT SCH (21:41)
[2023-04-19] MEDS: VITAL AF 1.2 1,000 ML BOTTLE GT PRN (23:05)
[2023-04-20] VITALS (7 sets, daily range): BP systolic 96–124; BP diastolic 51–85; TEMP 98.2–100.2; O2SAT 90–100
[2023-04-20] MEDS: METOCLOPRAMIDE HCL 10 MG/2 ML VIAL IV SCH ×4 (00:16→18:41)
[2023-04-20] MEDS: VANCOMYCIN HCL 125 MG/2.5 ML ORAL.SUSP GT SCH ×4 (00:16→18:41)
[2023-04-20 07:31] LABS: HEMATOCRIT 27 % (39-51); HEMOGLOBIN 8.7 g/dL (13.5-17.5); LYMPHOCYTES # (AUTO) 0.6 K/uL (0.8-4.8); LYMPHOCYTES % (AUTO) 6.2 % (20.0-44.0); MEAN CORPUSCULAR HEMOGLOBIN 30 PG (26.0-33.0); MEAN CORPUSCULAR HGB CONC 33 g/dl (31.0-36.0); MEAN CORPUSCULAR VOLUME 92 fL (80-96); MONOCYTES # (AUTO) 0.5 K/uL (0.1-1.30); MONOCYTES % (AUTO) 5.2 % (2.0-12.0); NEUTROPHILS # (AUTO) 8.9 K/uL (1.8-8.9); NEUTROPHILS % (AUTO) 88.6 % (43.0-81.0); PLATELET COUNT (AUTO) 280 K/uL (150-450); RED BLOOD CELL COUNT(AUTO) 2.89 MIL/uL (4.5-6.0); RED CELL DISTRIBUTION WIDTH 16.4 % (11.5-15.0)
[2023-04-20 08:09] LABS: CALCIUM, SERUM 9.1 mg/dL (8.5-10.1); CREATININE 0.3 mg/dL (0.6-1.3); MAGNESIUM 2.4 mg/dL (1.8-2.4); PHOSPHORUS 3.9 mg/dL (2.5-4.9); POTASSIUM 3.6 mmol/L (3.5-5.1)
[2023-04-20] MEDS: MULTIVIT W/MINERALS 1 TAB TABLET GT SCH (09:25)
[2023-04-20] MEDS: AMANTADINE HCL 100 MG CAPSULE GT SCH ×2 (09:26→21:30)
[2023-04-20] MEDS: PANTOPRAZOLE 40 MG/PACK PACK GT SCH (09:26)
[2023-04-20] MEDS: DANTROLENE SODIUM 25 MG CAPSULE GT SCH ×3 (09:26→21:30)
[2023-04-20] MEDS: VALPROIC ACID 250 MG/5 ML UDC GT SCH ×2 (09:26→21:32)
[2023-04-20] MEDS: CHOLECALCIFEROL (VITAMIN D 3) 400 UNIT TABLET GT SCH (09:26)
[2023-04-20] MEDS: LEVETIRACETAM SOL (5 ML) 100 MG/ML UDC GT SCH ×2 (09:26→21:30)
[2023-04-20] MEDS: FERROUS SULFATE UDC 300 MG/5 ML UDC GT SCH ×2 (09:26→21:30)
[2023-04-20] MEDS: DAKINS QUARTER STRENGTH (0.125%) 480 ML BOTTLE TOP SCH (09:27)
[2023-04-20] MEDS: Z GUARD REMEDY 4 OZ OINT TP SCH ×2 (09:28→21:30)
[2023-04-20] MEDS: THERAHONEY GEL 1.5 OZ TUBE TP SCH (09:28)
[2023-04-20] MEDS: ARGININE/GLUTAMINE/CALCIUM BMB 1 EACH POWD.PACK GT SCH ×2 (09:29→18:41)
[2023-04-20] MEDS: ACETAMINOPHEN 650 MG/20.3 ML UDC GT PRN (12:20)
[2023-04-20] MEDS: VITAL AF 1.2 1,000 ML BOTTLE GT PRN (13:54)
[2023-04-20] MEDS: IV NS 0.9% 250 ML IV PRN (13:55)
[2023-04-20] MEDS: LEVOTHYROXINE SODIUM 50 MCG TABLET GT SCH (21:30)
[2023-04-21] VITALS: BP 92/50; TEMP 98.1; O2SAT 100
[2023-04-21] MEDS: METOCLOPRAMIDE HCL 10 MG/2 ML VIAL IV SCH ×3 (00:20→21:43)
[2023-04-21] MEDS: VANCOMYCIN HCL 125 MG/2.5 ML ORAL.SUSP GT SCH ×5 (00:38→23:44)
[2023-04-21 04:00] VITALS: BP 95/50; TEMP 98.1; O2SAT 95
[2023-04-21] MEDS: VITAL AF 1.2 1,000 ML BOTTLE GT PRN ×2 (05:04→21:54)
[2023-04-21 07:51] LABS: EOSINOPHILS % (AUTO) 0.1 % (0.0-6.0); HEMATOCRIT 27 % (39-51); HEMOGLOBIN 8.7 g/dL (13.5-17.5); LYMPHOCYTES # (AUTO) 0.9 K/uL (0.8-4.8); LYMPHOCYTES % (AUTO) 10.5 % (20.0-44.0); MEAN CORPUSCULAR HEMOGLOBIN 30 PG (26.0-33.0); MEAN CORPUSCULAR HGB CONC 32 g/dl (31.0-36.0); MEAN CORPUSCULAR VOLUME 95 fL (80-96); MONOCYTES # (AUTO) 0.6 K/uL (0.1-1.30); MONOCYTES % (AUTO) 7.2 % (2.0-12.0); NEUTROPHILS % (AUTO) 82.2 % (43.0-81.0); PLATELET COUNT (AUTO) 253 K/uL (150-450); RED BLOOD CELL COUNT(AUTO) 2.87 MIL/uL (4.5-6.0); RED CELL DISTRIBUTION WIDTH 17.1 % (11.5-15.0); WHITE BLOOD COUNT (AUTO) 8.6 K/uL (4.3-11.0)
[2023-04-21 08:00] VITALS: BP 91/53; TEMP 97.6; O2SAT 99
[2023-04-21] MEDS: LEVETIRACETAM SOL (5 ML) 100 MG/ML UDC GT SCH ×2 (08:49→21:42)
[2023-04-21] MEDS: MULTIVIT W/MINERALS 1 TAB TABLET GT SCH (08:49)
[2023-04-21] MEDS: FERROUS SULFATE UDC 300 MG/5 ML UDC GT SCH ×2 (08:49→21:43)
[2023-04-21] MEDS: VALPROIC ACID 250 MG/5 ML UDC GT SCH ×2 (08:49→21:43)
[2023-04-21] MEDS: DANTROLENE SODIUM 25 MG CAPSULE GT SCH ×3 (08:50→21:43)
[2023-04-21] MEDS: ARGININE/GLUTAMINE/CALCIUM BMB 1 EACH POWD.PACK GT SCH ×2 (08:50→16:20)
[2023-04-21] MEDS: PANTOPRAZOLE 40 MG/PACK PACK GT SCH (08:50)
[2023-04-21] MEDS: CHOLECALCIFEROL (VITAMIN D 3) 400 UNIT TABLET GT SCH (08:50)
[2023-04-21] MEDS: AMANTADINE HCL 100 MG CAPSULE GT SCH ×2 (08:50→21:43)
[2023-04-21] MEDS: DAKINS QUARTER STRENGTH (0.125%) 480 ML BOTTLE TOP SCH (08:51)
[2023-04-21] MEDS: THERAHONEY GEL 1.5 OZ TUBE TP SCH (08:52)
[2023-04-21] MEDS: Z GUARD REMEDY 4 OZ OINT TP SCH ×2 (08:52→21:44)
[2023-04-21 08:57] LABS: CALCIUM, SERUM 8.5 mg/dL (8.5-10.1); CREATININE 0.3 mg/dL (0.6-1.3); MAGNESIUM 2.2 mg/dL (1.8-2.4); PHOSPHORUS 3.4 mg/dL (2.5-4.9); POTASSIUM 3.6 mmol/L (3.5-5.1)
[2023-04-21 12:00] VITALS: BP 91/58; TEMP 100; O2SAT 95
[2023-04-21] MEDS: ACETAMINOPHEN 650 MG/20.3 ML UDC GT PRN (14:03)
[2023-04-21] MEDS: MIDODRINE HCL (5MG) 5 MG TABLET GT PRN (15:47)
[2023-04-21 16:00] VITALS: BP 86/53; TEMP 100.1; O2SAT 95
[2023-04-21 20:00] VITALS: BP 103/73; TEMP 98.9; O2SAT 96
[2023-04-21] MEDS: LEVOTHYROXINE SODIUM 50 MCG TABLET GT SCH (21:43)
[2023-04-22] VITALS: BP 101/53; TEMP 98.9; O2SAT 95
[2023-04-22 04:00] VITALS: BP 98/54; TEMP 98.7; O2SAT 98
[2023-04-22] MEDS: VANCOMYCIN HCL 125 MG/2.5 ML ORAL.SUSP GT SCH ×4 (05:35→23:23)
[2023-04-22] MEDS: MIDODRINE HCL (5MG) 5 MG TABLET GT PRN (05:36)
[2023-04-22 08:00] VITALS: BP 99/68; TEMP 99.4; O2SAT 100
[2023-04-22 08:03] LABS: CREATININE 0.3 mg/dL (0.6-1.3); MAGNESIUM 2.2 mg/dL (1.8-2.4); PHOSPHORUS 3.5 mg/dL (2.5-4.9); POTASSIUM 3.6 mmol/L (3.5-5.1)
[2023-04-22 08:06] LABS: BASOPHILS % (AUTO) 0.1 % (0.0-2.0); EOSINOPHILS % (AUTO) 0.3 % (0.0-6.0); HEMATOCRIT 23 % (39-51); HEMOGLOBIN 7.5 g/dL (13.5-17.5); LYMPHOCYTES # (AUTO) 0.6 K/uL (0.8-4.8); LYMPHOCYTES % (AUTO) 12.7 % (20.0-44.0); MEAN CORPUSCULAR HEMOGLOBIN 31 PG (26.0-33.0); MEAN CORPUSCULAR HGB CONC 33 g/dl (31.0-36.0); MEAN CORPUSCULAR VOLUME 94 fL (80-96); MONOCYTES # (AUTO) 0.5 K/uL (0.1-1.30); MONOCYTES % (AUTO) 10.1 % (2.0-12.0); NEUTROPHILS # (AUTO) 3.9 K/uL (1.8-8.9); NEUTROPHILS % (AUTO) 76.8 % (43.0-81.0); PLATELET COUNT (AUTO) 243 K/uL (150-450); RED BLOOD CELL COUNT(AUTO) 2.46 MIL/uL (4.5-6.0); RED CELL DISTRIBUTION WIDTH 16.4 % (11.5-15.0); WHITE BLOOD COUNT (AUTO) 5.1 K/uL (4.3-11.0)
[2023-04-22] MEDS: MULTIVIT W/MINERALS 1 TAB TABLET GT SCH (09:19)
[2023-04-22] MEDS: FERROUS SULFATE UDC 300 MG/5 ML UDC GT SCH ×2 (09:19→20:14)
[2023-04-22] MEDS: AMANTADINE HCL 100 MG CAPSULE GT SCH ×2 (09:19→20:15)
[2023-04-22] MEDS: PANTOPRAZOLE 40 MG/PACK PACK GT SCH (09:19)
[2023-04-22] MEDS: DANTROLENE SODIUM 25 MG CAPSULE GT SCH ×3 (09:19→20:15)
[2023-04-22] MEDS: METOCLOPRAMIDE HCL 10 MG/2 ML VIAL IV SCH (09:20)
[2023-04-22] MEDS: CHOLECALCIFEROL (VITAMIN D 3) 400 UNIT TABLET GT SCH (09:20)
[2023-04-22] MEDS: LEVETIRACETAM SOL (5 ML) 100 MG/ML UDC GT SCH ×2 (09:20→20:14)
[2023-04-22] MEDS: VALPROIC ACID 250 MG/5 ML UDC GT SCH ×2 (09:20→20:14)
[2023-04-22] MEDS: DAKINS QUARTER STRENGTH (0.125%) 480 ML BOTTLE TOP SCH (09:26)
[2023-04-22] MEDS: ARGININE/GLUTAMINE/CALCIUM BMB 1 EACH POWD.PACK GT SCH ×2 (09:26→17:53)
[2023-04-22] MEDS: Z GUARD REMEDY 4 OZ OINT TP SCH ×2 (09:26→20:17)
[2023-04-22] MEDS: THERAHONEY GEL 1.5 OZ TUBE TP SCH (09:27)
[2023-04-22 12:00] VITALS: BP 100/64; TEMP 97.9; O2SAT 100; O2SAT 96
[2023-04-22] MEDS: VITAL AF 1.2 1,000 ML BOTTLE GT PRN (12:40)
[2023-04-22 16:00] VITALS: BP 92/54; TEMP 98.6; O2SAT 90
[2023-04-22 20:00] VITALS: BP 91/59; TEMP 98.6; O2SAT 97
[2023-04-22] MEDS: VANCOMYCIN 1 GM in IV D5W 250 ML IV SCH (20:36)
[2023-04-22] MEDS: LEVOTHYROXINE SODIUM 50 MCG TABLET GT SCH (22:13)
[2023-04-23] VITALS: BP 84/53; TEMP 100.8; O2SAT 95
[2023-04-23 04:00] VITALS: BP 110/75; TEMP 101.5; O2SAT 100
[2023-04-23] MEDS: VITAL AF 1.2 1,000 ML BOTTLE GT PRN ×2 (04:28→21:44)
[2023-04-23] MEDS: VANCOMYCIN HCL 125 MG/2.5 ML ORAL.SUSP GT SCH ×4 (05:44→23:54)
[2023-04-23 08:00] VITALS: BP 122/77; TEMP 100.4; O2SAT 98
[2023-04-23 08:14] LABS: CALCIUM, SERUM 8.6 mg/dL (8.5-10.1); CREATININE 0.3 mg/dL (0.6-1.3)
[2023-04-23] MEDS: VANCOMYCIN 1 GM in IV D5W 250 ML IV SCH ×2 (08:14→21:34)
[2023-04-23] MEDS: MULTIVIT W/MINERALS 1 TAB TABLET GT SCH (09:31)
[2023-04-23] MEDS: PANTOPRAZOLE 40 MG/PACK PACK GT SCH (09:31)
[2023-04-23] MEDS: VALPROIC ACID 250 MG/5 ML UDC GT SCH ×2 (09:31→21:35)
[2023-04-23] MEDS: LEVETIRACETAM SOL (5 ML) 100 MG/ML UDC GT SCH ×2 (09:32→21:35)
[2023-04-23] MEDS: CHOLECALCIFEROL (VITAMIN D 3) 400 UNIT TABLET GT SCH (09:32)
[2023-04-23] MEDS: FERROUS SULFATE UDC 300 MG/5 ML UDC GT SCH ×2 (09:32→21:35)
[2023-04-23] MEDS: AMANTADINE HCL 100 MG CAPSULE GT SCH ×2 (09:32→21:36)
[2023-04-23] MEDS: DANTROLENE SODIUM 25 MG CAPSULE GT SCH ×3 (09:32→21:36)
[2023-04-23] MEDS: ARGININE/GLUTAMINE/CALCIUM BMB 1 EACH POWD.PACK GT SCH ×2 (09:33→17:25)
[2023-04-23] MEDS: THERAHONEY GEL 1.5 OZ TUBE TP SCH (09:33)
[2023-04-23] MEDS: DAKINS QUARTER STRENGTH (0.125%) 480 ML BOTTLE TOP SCH (09:33)
[2023-04-23] MEDS: Z GUARD REMEDY 4 OZ OINT TP SCH ×2 (09:33→21:50)
[2023-04-23 12:00] VITALS: BP 114/72; TEMP 100; O2SAT 93
[2023-04-23 16:00] VITALS: BP 116/78; TEMP 101.3; O2SAT 97
[2023-04-23] MEDS: ACETAMINOPHEN 650 MG/20.3 ML UDC GT PRN (17:09)
[2023-04-23 20:00] VITALS: BP 114/77; TEMP 99.8; O2SAT 97
[2023-04-23] MEDS: LEVOTHYROXINE SODIUM 50 MCG TABLET GT SCH (21:36)
[2023-04-24] VITALS: BP 110/62; TEMP 100.3; O2SAT 97
[2023-04-24] MEDS: ACETAMINOPHEN 650 MG/20.3 ML UDC GT PRN ×2 (00:02→22:02)
[2023-04-24 04:00] VITALS: BP 111/58; TEMP 98.6; O2SAT 97
[2023-04-24] MEDS: VANCOMYCIN HCL 125 MG/2.5 ML ORAL.SUSP GT SCH ×3 (05:08→16:32)
[2023-04-24 07:10] LABS: BASOPHILS % (AUTO) 0.1 % (0.0-2.0); EOSINOPHILS % (AUTO) 0.1 % (0.0-6.0); HEMATOCRIT 22 % (39-51); HEMOGLOBIN 7.3 g/dL (13.5-17.5); LYMPHOCYTES # (AUTO) 1.3 K/uL (0.8-4.8); LYMPHOCYTES % (AUTO) 23.8 % (20.0-44.0); MEAN CORPUSCULAR HEMOGLOBIN 31 PG (26.0-33.0); MEAN CORPUSCULAR HGB CONC 33 g/dl (31.0-36.0); MEAN CORPUSCULAR VOLUME 93 fL (80-96); MONOCYTES # (AUTO) 0.7 K/uL (0.1-1.30); MONOCYTES % (AUTO) 13.1 % (2.0-12.0); NEUTROPHILS # (AUTO) 3.3 K/uL (1.8-8.9); NEUTROPHILS % (AUTO) 62.9 % (43.0-81.0); PLATELET COUNT (AUTO) 218 K/uL (150-450); RED BLOOD CELL COUNT(AUTO) 2.37 MIL/uL (4.5-6.0); RED CELL DISTRIBUTION WIDTH 15.8 % (11.5-15.0); WHITE BLOOD COUNT (AUTO) 5.3 K/uL (4.3-11.0)
[2023-04-24 07:48] LABS: CALCIUM, SERUM 8.4 mg/dL (8.5-10.1); CREATININE 0.3 mg/dL (0.6-1.3); MAGNESIUM 2.3 mg/dL (1.8-2.4); PHOSPHORUS 3.3 mg/dL (2.5-4.9); POTASSIUM 3.7 mmol/L (3.5-5.1)
[2023-04-24 08:00] VITALS: BP 101/63; TEMP 98.5; O2SAT 97
[2023-04-24] MEDS: VANCOMYCIN 1 GM in IV D5W 250 ML IV SCH ×2 (09:38→19:56)
[2023-04-24] MEDS: MULTIVIT W/MINERALS 1 TAB TABLET GT SCH (09:39)
[2023-04-24] MEDS: FERROUS SULFATE UDC 300 MG/5 ML UDC GT SCH ×2 (09:39→22:03)
[2023-04-24] MEDS: DANTROLENE SODIUM 25 MG CAPSULE GT SCH ×3 (09:39→22:03)
[2023-04-24] MEDS: AMANTADINE HCL 100 MG CAPSULE GT SCH ×2 (09:39→22:03)
[2023-04-24] MEDS: LEVETIRACETAM SOL (5 ML) 100 MG/ML UDC GT SCH ×2 (09:39→22:03)
[2023-04-24] MEDS: CHOLECALCIFEROL (VITAMIN D 3) 400 UNIT TABLET GT SCH (09:39)
[2023-04-24] MEDS: VALPROIC ACID 250 MG/5 ML UDC GT SCH ×2 (09:39→22:03)
[2023-04-24] MEDS: PANTOPRAZOLE 40 MG/PACK PACK GT SCH (09:39)
[2023-04-24] MEDS: THERAHONEY GEL 1.5 OZ TUBE TP SCH (09:40)
[2023-04-24] MEDS: ARGININE/GLUTAMINE/CALCIUM BMB 1 EACH POWD.PACK GT SCH ×2 (09:40→16:32)
[2023-04-24] MEDS: DAKINS QUARTER STRENGTH (0.125%) 480 ML BOTTLE TOP SCH (09:40)
[2023-04-24] MEDS: Z GUARD REMEDY 4 OZ OINT TP SCH ×2 (09:40→22:04)
[2023-04-24] MEDS ORDERED: IOHEXOL-300 100 ML VIAL IV ONE (10:26)
[2023-04-24] MEDS ORDERED: IV NS 0.9% 250 ML IV ONE (10:26)
[2023-04-24 12:00] VITALS: BP 105/63; TEMP 98.2; O2SAT 96
[2023-04-24 13:01] LABS: ALBUMIN 1.6 g/dL (3.4-5.0); BILIRUBIN,DIRECT 0.1 mg/dL (0.0-0.2); BILIRUBIN,TOTAL 0.2 mg/dL (0.2-1.0); TOTAL PROTEIN, SERUM 6.2 g/dL (6.4-8.2)
[2023-04-24 16:00] VITALS: BP 108/60; TEMP 98.4; O2SAT 99
[2023-04-24] MEDS: VITAL AF 1.2 1,000 ML BOTTLE GT PRN (16:31)
[2023-04-24 20:00] VITALS: BP 109/74; TEMP 100.2; O2SAT 96
[2023-04-24] MEDS: LEVOTHYROXINE SODIUM 50 MCG TABLET GT SCH (22:03)
[2023-04-25] VITALS: BP 92/60; TEMP 98.4; O2SAT 100
[2023-04-25] MEDS: VANCOMYCIN HCL 125 MG/2.5 ML ORAL.SUSP GT SCH ×4 (01:14→17:34)
[2023-04-25 04:00] VITALS: BP 92/56; TEMP 98.6; O2SAT 95
[2023-04-25 07:37] LABS: BASOPHILS % (AUTO) 0.1 % (0.0-2.0); EOSINOPHILS % (AUTO) 0.4 % (0.0-6.0); HEMATOCRIT 23 % (39-51); HEMOGLOBIN 7.4 g/dL (13.5-17.5); LYMPHOCYTES # (AUTO) 0.9 K/uL (0.8-4.8); LYMPHOCYTES % (AUTO) 18.7 % (20.0-44.0); MEAN CORPUSCULAR HEMOGLOBIN 30 PG (26.0-33.0); MEAN CORPUSCULAR HGB CONC 32 g/dl (31.0-36.0); MEAN CORPUSCULAR VOLUME 93 fL (80-96); MONOCYTES # (AUTO) 0.5 K/uL (0.1-1.30); MONOCYTES % (AUTO) 11.4 % (2.0-12.0); NEUTROPHILS # (AUTO) 3.3 K/uL (1.8-8.9); NEUTROPHILS % (AUTO) 69.4 % (43.0-81.0); PLATELET COUNT (AUTO) 195 K/uL (150-450); RED BLOOD CELL COUNT(AUTO) 2.46 MIL/uL (4.5-6.0); RED CELL DISTRIBUTION WIDTH 16.3 % (11.5-15.0); WHITE BLOOD COUNT (AUTO) 4.8 K/uL (4.3-11.0)
[2023-04-25 08:00] VITALS: BP 109/75; TEMP 98.6; O2SAT 98
[2023-04-25 08:03] LABS: ALBUMIN 1.5 g/dL (3.4-5.0); BILIRUBIN,TOTAL 0.1 mg/dL (0.2-1.0); CALCIUM, SERUM 8.4 mg/dL (8.5-10.1); CREATININE 0.2 mg/dL (0.6-1.3); MAGNESIUM 2.4 mg/dL (1.8-2.4); PHOSPHORUS 3.2 mg/dL (2.5-4.9); POTASSIUM 3.5 mmol/L (3.5-5.1); TOTAL PROTEIN, SERUM 6.1 g/dL (6.4-8.2)
[2023-04-25] MEDS: LEVETIRACETAM SOL (5 ML) 100 MG/ML UDC GT SCH ×2 (09:07→20:27)
[2023-04-25] MEDS: VALPROIC ACID 250 MG/5 ML UDC GT SCH ×2 (09:07→20:27)
[2023-04-25] MEDS: DANTROLENE SODIUM 25 MG CAPSULE GT SCH ×3 (09:08→20:26)
[2023-04-25] MEDS: AMANTADINE HCL 100 MG CAPSULE GT SCH ×2 (09:08→20:27)
[2023-04-25] MEDS: FERROUS SULFATE UDC 300 MG/5 ML UDC GT SCH ×2 (09:08→20:27)
[2023-04-25] MEDS: PANTOPRAZOLE 40 MG/PACK PACK GT SCH (09:08)
[2023-04-25] MEDS: CHOLECALCIFEROL (VITAMIN D 3) 400 UNIT TABLET GT SCH (09:09)
[2023-04-25] MEDS: MULTIVIT W/MINERALS 1 TAB TABLET GT SCH (09:12)
[2023-04-25] MEDS: ARGININE/GLUTAMINE/CALCIUM BMB 1 EACH POWD.PACK GT SCH ×2 (09:16→17:34)
[2023-04-25] MEDS: VANCOMYCIN 1 GM in IV D5W 250 ML IV SCH ×2 (09:28→20:01)
[2023-04-25] MEDS: THERAHONEY GEL 1.5 OZ TUBE TP SCH (11:00)
[2023-04-25] MEDS: Z GUARD REMEDY 4 OZ OINT TP SCH ×2 (11:00→20:28)
[2023-04-25] MEDS: DAKINS QUARTER STRENGTH (0.125%) 480 ML BOTTLE TOP SCH (11:01)
[2023-04-25 12:00] VITALS: BP 96/61; TEMP 98.8; O2SAT 95
[2023-04-25] MEDS: VITAL AF 1.2 1,000 ML BOTTLE GT PRN (12:15)
[2023-04-25] MEDS: LEVOFLOXACIN (250MG) 250 MG TABLET GT SCH (12:16)
[2023-04-25 16:00] VITALS: BP 95/72; TEMP 99.4; O2SAT 95
[2023-04-25 20:00] VITALS: BP 110/70; TEMP 99; O2SAT 96
[2023-04-25] MEDS: LEVOTHYROXINE SODIUM 50 MCG TABLET GT SCH (21:21)
[2023-04-26] VITALS: BP 102/62; TEMP 98.1; O2SAT 100
[2023-04-26] MEDS: VANCOMYCIN HCL 125 MG/2.5 ML ORAL.SUSP GT SCH ×4 (00:32→18:47)
[2023-04-26] MEDS: MIDODRINE HCL (5MG) 5 MG TABLET GT PRN (00:58)
[2023-04-26 04:00] VITALS: BP 94/60; TEMP 98.4; O2SAT 96
[2023-04-26] MEDS: VITAL AF 1.2 1,000 ML BOTTLE GT PRN ×2 (04:51→23:18)
[2023-04-26 08:00] VITALS: BP 105/70; TEMP 98.2; O2SAT 96
[2023-04-26] MEDS: VANCOMYCIN 1 GM in IV D5W 250 ML IV SCH (08:24)
[2023-04-26] MEDS: PANTOPRAZOLE 40 MG/PACK PACK GT SCH (08:25)
[2023-04-26] MEDS: LEVETIRACETAM SOL (5 ML) 100 MG/ML UDC GT SCH ×2 (08:25→21:31)
[2023-04-26] MEDS: ARGININE/GLUTAMINE/CALCIUM BMB 1 EACH POWD.PACK GT SCH ×2 (08:25→18:48)
[2023-04-26] MEDS: VALPROIC ACID 250 MG/5 ML UDC GT SCH ×2 (08:25→21:31)
[2023-04-26] MEDS: DANTROLENE SODIUM 25 MG CAPSULE GT SCH ×3 (08:26→21:32)
[2023-04-26] MEDS: AMANTADINE HCL 100 MG CAPSULE GT SCH ×2 (08:26→21:31)
[2023-04-26] MEDS: FERROUS SULFATE UDC 300 MG/5 ML UDC GT SCH ×2 (08:26→21:31)
[2023-04-26] MEDS: CHOLECALCIFEROL (VITAMIN D 3) 400 UNIT TABLET GT SCH (08:26)
[2023-04-26] MEDS: MULTIVIT W/MINERALS 1 TAB TABLET GT SCH (08:26)
[2023-04-26] MEDS: Z GUARD REMEDY 4 OZ OINT TP SCH ×2 (08:27→21:32)
[2023-04-26] MEDS: DAKINS QUARTER STRENGTH (0.125%) 480 ML BOTTLE TOP SCH (08:27)
[2023-04-26] MEDS: THERAHONEY GEL 1.5 OZ TUBE TP SCH (08:28)
[2023-04-26 08:43] LABS: ALBUMIN 1.6 g/dL (3.4-5.0); BILIRUBIN,TOTAL 0.1 mg/dL (0.2-1.0); CALCIUM, SERUM 8.4 mg/dL (8.5-10.1); CREATININE 0.2 mg/dL (0.6-1.3); MAGNESIUM 2.4 mg/dL (1.8-2.4); POTASSIUM 3.6 mmol/L (3.5-5.1); TOTAL PROTEIN, SERUM 6.4 g/dL (6.4-8.2)
[2023-04-26 08:58] LABS: EOSINOPHILS % (AUTO) 0.8 % (0.0-6.0); HEMATOCRIT 23 % (39-51); HEMOGLOBIN 7.5 g/dL (13.5-17.5); LYMPHOCYTES # (AUTO) 0.6 K/uL (0.8-4.8); LYMPHOCYTES % (AUTO) 12.2 % (20.0-44.0); MEAN CORPUSCULAR HEMOGLOBIN 30 PG (26.0-33.0); MEAN CORPUSCULAR HGB CONC 32 g/dl (31.0-36.0); MEAN CORPUSCULAR VOLUME 93 fL (80-96); MONOCYTES # (AUTO) 0.6 K/uL (0.1-1.30); MONOCYTES % (AUTO) 11.6 % (2.0-12.0); NEUTROPHILS % (AUTO) 75.4 % (43.0-81.0); PLATELET COUNT (AUTO) 196 K/uL (150-450); RED BLOOD CELL COUNT(AUTO) 2.48 MIL/uL (4.5-6.0); WHITE BLOOD COUNT (AUTO) 5.3 K/uL (4.3-11.0)
[2023-04-26 12:00] VITALS: BP 108/74; TEMP 98.1; O2SAT 100
[2023-04-26] MEDS: LEVOFLOXACIN (250MG) 250 MG TABLET GT SCH (13:03)
[2023-04-26 16:00] VITALS: BP 100/66; TEMP 98.4; O2SAT 100
[2023-04-26 20:00] VITALS: BP 110/62; TEMP 99.1; O2SAT 98
[2023-04-26] MEDS: LEVOTHYROXINE SODIUM 50 MCG TABLET GT SCH (22:00)
[2023-04-26] MEDS: ACETAMINOPHEN 650 MG/20.3 ML UDC GT PRN (22:00)
[2023-04-27] VITALS: BP 117/62; TEMP 99.2; O2SAT 97
[2023-04-27] MEDS: VANCOMYCIN HCL 125 MG/2.5 ML ORAL.SUSP GT SCH ×5 (00:15→23:05)
[2023-04-27 04:00] VITALS: BP 123/67; TEMP 100.8; O2SAT 97
[2023-04-27 08:00] VITALS: BP 116/60; TEMP 99.1; O2SAT 95
[2023-04-27 08:00] LABS: EOSINOPHILS % (AUTO) 0.6 % (0.0-6.0); HEMATOCRIT 21 % (39-51); HEMOGLOBIN 7.1 g/dL (13.5-17.5); LYMPHOCYTES % (AUTO) 14.3 % (20.0-44.0); MEAN CORPUSCULAR HEMOGLOBIN 31 PG (26.0-33.0); MEAN CORPUSCULAR HGB CONC 33 g/dl (31.0-36.0); MEAN CORPUSCULAR VOLUME 92 fL (80-96); MONOCYTES # (AUTO) 0.5 K/uL (0.1-1.30); MONOCYTES % (AUTO) 7.6 % (2.0-12.0); NEUTROPHILS # (AUTO) 5.5 K/uL (1.8-8.9); NEUTROPHILS % (AUTO) 77.5 % (43.0-81.0); PLATELET COUNT (AUTO) 210 K/uL (150-450); RED BLOOD CELL COUNT(AUTO) 2.32 MIL/uL (4.5-6.0); WHITE BLOOD COUNT (AUTO) 7.1 K/uL (4.3-11.0)
[2023-04-27] MEDS: LEVETIRACETAM SOL (5 ML) 100 MG/ML UDC GT SCH ×2 (08:33→20:36)
[2023-04-27] MEDS: VALPROIC ACID 250 MG/5 ML UDC GT SCH ×2 (08:33→20:36)
[2023-04-27] MEDS: FERROUS SULFATE UDC 300 MG/5 ML UDC GT SCH ×2 (08:34→20:36)
[2023-04-27] MEDS: MULTIVIT W/MINERALS 1 TAB TABLET GT SCH (08:34)
[2023-04-27] MEDS: AMANTADINE HCL 100 MG CAPSULE GT SCH ×2 (08:34→20:37)
[2023-04-27] MEDS: CHOLECALCIFEROL (VITAMIN D 3) 400 UNIT TABLET GT SCH (08:34)
[2023-04-27] MEDS: PANTOPRAZOLE 40 MG/PACK PACK GT SCH (08:34)
[2023-04-27] MEDS: DANTROLENE SODIUM 25 MG CAPSULE GT SCH ×3 (08:34→20:37)
[2023-04-27] MEDS: Z GUARD REMEDY 4 OZ OINT TP SCH ×2 (08:37→20:38)
[2023-04-27] MEDS: ARGININE/GLUTAMINE/CALCIUM BMB 1 EACH POWD.PACK GT SCH ×2 (08:47→17:21)
[2023-04-27 09:38] LABS: ALBUMIN 1.6 g/dL (3.4-5.0); BILIRUBIN,TOTAL 0.1 mg/dL (0.2-1.0); CALCIUM, SERUM 8.3 mg/dL (8.5-10.1); CREATININE 0.3 mg/dL (0.6-1.3); MAGNESIUM 2.2 mg/dL (1.8-2.4); POTASSIUM 3.5 mmol/L (3.5-5.1)
[2023-04-27] MEDS: THERAHONEY GEL 1.5 OZ TUBE TP SCH (10:10)
[2023-04-27] MEDS: DAKINS QUARTER STRENGTH (0.125%) 480 ML BOTTLE TOP SCH (10:10)
[2023-04-27 12:00] VITALS: BP 114/58; TEMP 98.6; O2SAT 99
[2023-04-27] MEDS: LEVOFLOXACIN (250MG) 250 MG TABLET GT SCH (12:01)
[2023-04-27] MEDS: VITAL AF 1.2 1,000 ML BOTTLE GT PRN (14:44)
[2023-04-27 16:00] VITALS: BP 113/62; TEMP 98.8; O2SAT 98
[2023-04-27 20:00] VITALS: BP 111/62; TEMP 98; O2SAT 98
[2023-04-27] MEDS: LEVOTHYROXINE SODIUM 50 MCG TABLET GT SCH (20:37)
[2023-04-28] VITALS: BP 115/65; TEMP 98.2; O2SAT 99
[2023-04-28 04:00] VITALS: BP 112/66; TEMP 98.4; O2SAT 100
[2023-04-28] MEDS: VANCOMYCIN HCL 125 MG/2.5 ML ORAL.SUSP GT SCH ×3 (05:52→17:21)
[2023-04-28 07:07] LABS: BASOPHILS % (AUTO) 0.1 % (0.0-2.0); EOSINOPHILS # (AUTO) 0.1 K/uL (0.0-0.7); EOSINOPHILS % (AUTO) 0.8 % (0.0-6.0); HEMATOCRIT 24 % (39-51); HEMOGLOBIN 7.9 g/dL (13.5-17.5); LYMPHOCYTES # (AUTO) 0.9 K/uL (0.8-4.8); LYMPHOCYTES % (AUTO) 9.7 % (20.0-44.0); MEAN CORPUSCULAR HEMOGLOBIN 31 PG (26.0-33.0); MEAN CORPUSCULAR HGB CONC 33 g/dl (31.0-36.0); MEAN CORPUSCULAR VOLUME 94 fL (80-96); MONOCYTES # (AUTO) 0.6 K/uL (0.1-1.30); MONOCYTES % (AUTO) 6.3 % (2.0-12.0); NEUTROPHILS # (AUTO) 7.8 K/uL (1.8-8.9); NEUTROPHILS % (AUTO) 83.1 % (43.0-81.0); PLATELET COUNT (AUTO) 242 K/uL (150-450); RED BLOOD CELL COUNT(AUTO) 2.59 MIL/uL (4.5-6.0); RED CELL DISTRIBUTION WIDTH 16.4 % (11.5-15.0); WHITE BLOOD COUNT (AUTO) 9.4 K/uL (4.3-11.0)
[2023-04-28 08:00] VITALS: BP 112/66; TEMP 97.9; O2SAT 98
[2023-04-28 08:19] LABS: CALCIUM, SERUM 8.4 mg/dL (8.5-10.1); CREATININE 0.2 mg/dL (0.6-1.3)
[2023-04-28 08:22] LABS: ALBUMIN 1.6 g/dL (3.4-5.0); BILIRUBIN,DIRECT 0.1 mg/dL (0.0-0.2); BILIRUBIN,TOTAL 0.1 mg/dL (0.2-1.0); MAGNESIUM 2.4 mg/dL (1.8-2.4); TOTAL PROTEIN, SERUM 6.3 g/dL (6.4-8.2)
[2023-04-28] MEDS: PANTOPRAZOLE 40 MG/PACK PACK GT SCH (08:53)
[2023-04-28] MEDS: AMANTADINE HCL 100 MG CAPSULE GT SCH ×2 (08:53→20:09)
[2023-04-28] MEDS: DANTROLENE SODIUM 25 MG CAPSULE GT SCH ×3 (08:53→20:08)
[2023-04-28] MEDS: LEVETIRACETAM SOL (5 ML) 100 MG/ML UDC GT SCH ×2 (08:53→20:09)
[2023-04-28] MEDS: FERROUS SULFATE UDC 300 MG/5 ML UDC GT SCH ×2 (08:54→20:09)
[2023-04-28] MEDS: CHOLECALCIFEROL (VITAMIN D 3) 400 UNIT TABLET GT SCH (08:54)
[2023-04-28] MEDS: MULTIVIT W/MINERALS 1 TAB TABLET GT SCH (08:54)
[2023-04-28] MEDS: THERAHONEY GEL 1.5 OZ TUBE TP SCH (08:55)
[2023-04-28] MEDS: DAKINS QUARTER STRENGTH (0.125%) 480 ML BOTTLE TOP SCH (08:55)
[2023-04-28] MEDS: ARGININE/GLUTAMINE/CALCIUM BMB 1 EACH POWD.PACK GT SCH ×2 (08:55→17:21)
[2023-04-28] MEDS: Z GUARD REMEDY 4 OZ OINT TP SCH ×2 (08:55→21:00)
[2023-04-28] MEDS: VALPROIC ACID 250 MG/5 ML UDC GT SCH ×2 (08:57→20:09)
[2023-04-28] MEDS: VITAL AF 1.2 1,000 ML BOTTLE GT PRN (09:32)
[2023-04-28 12:00] VITALS: BP_SYST 108; BP_SYST 208; BP_DIAS 72; TEMP 99.3; O2SAT 100
[2023-04-28] MEDS: LEVOFLOXACIN (250MG) 250 MG TABLET GT SCH (12:34)
[2023-04-28 16:00] VITALS: BP 111/73; TEMP 100.2; O2SAT 97
[2023-04-28] MEDS: ACETAMINOPHEN 650 MG/20.3 ML UDC GT PRN ×2 (17:21→20:25)
[2023-04-28 20:52] VITALS: BP 111/73; TEMP 102.4; O2SAT 97
[2023-04-28] MEDS: LEVOTHYROXINE SODIUM 50 MCG TABLET GT SCH (21:29)
[2023-04-29] MEDS: VANCOMYCIN HCL 125 MG/2.5 ML ORAL.SUSP GT SCH ×2 (00:19→05:12)
[2023-04-29 00:58] VITALS: BP 106/68; TEMP 100.4; O2SAT 96
[2023-04-29] MEDS: VITAL AF 1.2 1,000 ML BOTTLE GT PRN (02:06)
[2023-04-29 05:50] VITALS: BP 164/96; TEMP 100.6; O2SAT 99
[2023-04-29] MEDS: ACETAMINOPHEN 650 MG/20.3 ML UDC GT PRN (06:11)
[2023-04-29 07:31] LABS: BASOPHILS % (AUTO) 0.1 % (0.0-2.0); EOSINOPHILS # (AUTO) 0.1 K/uL (0.0-0.7); EOSINOPHILS % (AUTO) 0.8 % (0.0-6.0); HEMATOCRIT 23 % (39-51); HEMOGLOBIN 7.6 g/dL (13.5-17.5); LYMPHOCYTES # (AUTO) 1.4 K/uL (0.8-4.8); MEAN CORPUSCULAR HEMOGLOBIN 31 PG (26.0-33.0); MEAN CORPUSCULAR HGB CONC 33 g/dl (31.0-36.0); MEAN CORPUSCULAR VOLUME 93 fL (80-96); MONOCYTES # (AUTO) 0.9 K/uL (0.1-1.30); MONOCYTES % (AUTO) 6.2 % (2.0-12.0); NEUTROPHILS # (AUTO) 11.5 K/uL (1.8-8.9); NEUTROPHILS % (AUTO) 82.9 % (43.0-81.0); PLATELET COUNT (AUTO) 277 K/uL (150-450); RED BLOOD CELL COUNT(AUTO) 2.49 MIL/uL (4.5-6.0); WHITE BLOOD COUNT (AUTO) 13.9 K/uL (4.3-11.0)
[2023-04-29] MEDS: MIDODRINE HCL (5MG) 5 MG TABLET GT PRN (07:34)
[2023-04-29 07:57] LABS: ALBUMIN 1.8 g/dL (3.4-5.0); BILIRUBIN,TOTAL 0.1 mg/dL (0.2-1.0); CALCIUM, SERUM 8.4 mg/dL (8.5-10.1); CREATININE 0.3 mg/dL (0.6-1.3); MAGNESIUM 2.3 mg/dL (1.8-2.4); POTASSIUM 3.7 mmol/L (3.5-5.1); TOTAL PROTEIN, SERUM 6.5 g/dL (6.4-8.2)
[2023-04-29 08:00] VITALS: BP_SYST 118; BP_SYST 82; BP_DIAS 50; BP_DIAS 81; TEMP 210.4; TEMP 99.1; O2SAT 96
[2023-04-29] MEDS: FERROUS SULFATE UDC 300 MG/5 ML UDC GT SCH (08:14)
[2023-04-29] MEDS: ARGININE/GLUTAMINE/CALCIUM BMB 1 EACH POWD.PACK GT SCH (08:14)
[2023-04-29] MEDS: DAKINS QUARTER STRENGTH (0.125%) 480 ML BOTTLE TOP SCH (08:15)
[2023-04-29] MEDS: PANTOPRAZOLE 40 MG/PACK PACK GT SCH (08:15)
[2023-04-29] MEDS: AMANTADINE HCL 100 MG CAPSULE GT SCH (08:15)
[2023-04-29] MEDS: LEVETIRACETAM SOL (5 ML) 100 MG/ML UDC GT SCH (08:15)
[2023-04-29] MEDS: DANTROLENE SODIUM 25 MG CAPSULE GT SCH (08:15)
[2023-04-29] MEDS: CHOLECALCIFEROL (VITAMIN D 3) 400 UNIT TABLET GT SCH (08:15)
[2023-04-29] MEDS: MULTIVIT W/MINERALS 1 TAB TABLET GT SCH (08:15)
[2023-04-29] MEDS: THERAHONEY GEL 1.5 OZ TUBE TP SCH (08:16)
[2023-04-29] MEDS: Z GUARD REMEDY 4 OZ OINT TP SCH (08:16)
[2023-04-29] MEDS: VALPROIC ACID 250 MG/5 ML UDC GT SCH (08:21)
[2023-04-29 15:41] LABS: ANISOCYTOSIS 1+; EOSINOPHILS % (MANUAL) 1 % (0-4); LYMPHOCYTES % (MANUAL) 8 % (16-48); MONOCYTES % (MANUAL) 5 % (0-11.0); MYELOCYTES % 3 % (0-0); NEUTROPHILS % (MANUAL) 83 (42-76); PLATELET ESTIMATE ADEQUATE
== END 2023-04-29 13:55 | disposition short-term general hospital (02) | DRG 853 ==
LOC: ER 07:18 → TRANSITION 10:27 → ICU 21:24 → TELE1 03-23 12:05 → ICU 04-04 07:16 → TELE-TD 04-14 14:57 → TELE1 04-16 08:46
PROVIDERS: ADMIT Internal Medicine; ATTEND Nurse Practitioner Family
PROC: 5A1955Z Respiratory Ventilation, Greater than 96 Consecutive Hours (ICD-10-PCS; principal; 2023-03-19)
PROC: 0KBN0ZZ Excision of Right Hip Muscle, Open Approach (ICD-10-PCS; 2023-03-23)
PROC: 0KBP0ZZ Excision of Left Hip Muscle, Open Approach (ICD-10-PCS; 2023-03-23)
PROC: 30233N1 Transfusion of Nonautologous Red Blood Cells into Peripheral Vein, Percutaneous Approach (ICD-10-PCS; 2023-03-26)
PROC: 0JH63XZ Insertion of Tunneled Vascular Access Device into Chest Subcutaneous Tissue and Fascia, Percutaneous Approach (ICD-10-PCS; 2023-04-04)
PROC: 05H533Z Insertion of Infusion Device into Right Subclavian Vein, Percutaneous Approach (ICD-10-PCS; 2023-04-04)
PROC: B546ZZA Ultrasonography of Right Subclavian Vein, Guidance (ICD-10-PCS; 2023-04-04)
PROC: 0JBL0ZZ Excision of Right Upper Leg Subcutaneous Tissue and Fascia, Open Approach (ICD-10-PCS; 2023-04-08)
PROC: 0JBM0ZZ Excision of Left Upper Leg Subcutaneous Tissue and Fascia, Open Approach (ICD-10-PCS; 2023-04-08)
PROC: 0JBM0ZZ Excision of Left Upper Leg Subcutaneous Tissue and Fascia, Open Approach (ICD-10-PCS; 2023-04-12)
PROC: 0JBL0ZZ Excision of Right Upper Leg Subcutaneous Tissue and Fascia, Open Approach (ICD-10-PCS; 2023-04-12)
PROC: 0JB70ZZ Excision of Back Subcutaneous Tissue and Fascia, Open Approach (ICD-10-PCS; 2023-04-20)
PROC: 0JBM0ZZ Excision of Left Upper Leg Subcutaneous Tissue and Fascia, Open Approach (ICD-10-PCS; 2023-04-20)
PROC: 0JBL0ZZ Excision of Right Upper Leg Subcutaneous Tissue and Fascia, Open Approach (ICD-10-PCS; 2023-04-20)
DX: A41.9 Sepsis, unspecified organism (principal); E43 Unspecified severe protein-calorie malnutrition; L89.314 Pressure ulcer of right buttock, stage 4; L89.154 Pressure ulcer of sacral region, stage 4; L89.324 Pressure ulcer of left buttock, stage 4; L89.894 Pressure ulcer of other site, stage 4; I21.A1 Myocardial infarction type 2; L89.224 Pressure ulcer of left hip, stage 4; L89.214 Pressure ulcer of right hip, stage 4; J69.0 Pneumonitis due to inhalation of food and vomit; R65.21 Severe sepsis with septic shock; R53.2 Functional quadriplegia; J96.21 Acute and chronic respiratory failure with hypoxia; G92.8 Other toxic encephalopathy; Z99.11 Dependence on respirator [ventilator] status; R64 Cachexia; N39.0 Urinary tract infection, site not specified; N17.9 Acute kidney failure, unspecified; J44.0 Chronic obstructive pulmonary disease with (acute) lower respiratory infection; G93.1 Anoxic brain damage, not elsewhere classified; A04.72 Enterocolitis due to Clostridium difficile, not specified as recurrent; E87.1 Hypo-osmolality and hyponatremia; Z16.24 Resistance to multiple antibiotics; Z16.13 Resistance to carbapenem; Z68.1 Body mass index [BMI] 19.9 or less, adult; E87.0 Hyperosmolality and hypernatremia; I96 Gangrene, not elsewhere classified; Z20.822 Contact with and (suspected) exposure to COVID-19; G40.909 Epilepsy, unspecified, not intractable, without status epilepticus; E03.9 Hypothyroidism, unspecified; Z74.01 Bed confinement status; Z93.1 Gastrostomy status; Z93.0 Tracheostomy status; R13.10 Dysphagia, unspecified; M62.562 Muscle wasting and atrophy, not elsewhere classified, left lower leg; M62.561 Muscle wasting and atrophy, not elsewhere classified, right lower leg; Z79.890 Hormone replacement therapy; Z79.899 Other long term (current) drug therapy; Z79.51 Long term (current) use of inhaled steroids; F09 Unspecified mental disorder due to known physiological condition; B96.1 Klebsiella pneumoniae [K. pneumoniae] as the cause of diseases classified elsewhere; D63.8 Anemia in other chronic diseases classified elsewhere; E86.9 Volume depletion, unspecified; M89.8X9 Other specified disorders of bone, unspecified site; Y95 Nosocomial condition; E86.0 Dehydration; E86.1 Hypovolemia; L89.616 Pressure-induced deep tissue damage of right heel; L89.896 Pressure-induced deep tissue damage of other site; I95.9 Hypotension, unspecified
CPT/HCPCS: 31720; 36410; 36415; 36569; 36600; 71045-TC; 76700-TC; 80048-TC; 80053-TC; 80076-TC; 80202-TC; 81001; 82272-TC; 82533; 82803-TC; 82962-TC; 83605-TC; 83690-TC; 83735-TC; 83880; 84100-TC; 84443-TC; 84484-TC; 85025-TC; 85027-TC; 85730-TC; 86803; 86850-TC; 87040-TC; 87081-TC; 87086-TC; 87186-TC; 87806; 93307-TC; 94002-TC; 94003-TC; 94760-TC; 94762-TC; 94799-TC; 99082-TC; A4216; A4217; A4223; A4623; A6253; A6403; A7526; C9113; C9803; G0378; J0692; J1650; J1953; J2185; J2543; J2765; J2930; J3370; J3480; J3490; J7030; J7040; J7050; J7060; J8597; P9016; Q9967